=== PATIENT | male | born 1975 | race American Indian/Alaskan Native ===

== ENCOUNTER 2017-09-27 13:43 | Emergency (ER) | payer OTHER ==
[2017-09-27] MEDS ORDERED: HYDROmorphone 1 MG/ML Syringe IM ONE (14:41)
--- NOTE | 2017-09-27 14:51 | EDM.PDOC ---
ED HPI GENERAL MEDICAL PROBLEM - General Chief Complaint: Upper Extremity Injury/Pain Stated Complaint: SHOULDER PAIN Time Seen by Provider: 09/27/17 14:41 Source of Information: Reports: Patient History Limitations: Reports: No Limitations - History of Present Illness INITIAL COMMENTS - FREE TEXT/NARRATIVE: 42-year-old male presents for evaluation and treatment of pain to the left shoulder. Patient reports on Thursday he was lifting a propane tank. He was lifting this awkwardly. Since then he has been experiencing severe left arm pain. He states that it involves his neck, back and arm. Reports the pain is significantly worse with movement. He describes as a burning sensation. Identifies pain to the right anterior and superior shoulder. States he is taking some Aleve but continues to have discomfort. Denies any chest pain, shortness of breath, nausea, vomiting or diaphoresis. Patient would also like to be evaluated for a burn to the right hand fourth finger. 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 Patient also reports that he is a diabetic. He has a blister on the right foot. He states this is been present for several months after hunting. He reports he was not wearing adequate shoes during hunting. He now has discomfort to the right foot with swelling. Location: Reports: Upper Extremity, Left Left Shoulder Pain Score (Numeric/FACES): 10 - Related Data Allergies Allergy/AdvReac Type Severity Reaction Status Date / Time No Known Allergies Allergy Verified 09/27/17 14:06 Home Meds: Home Meds Acetaminophen/oxyCODONE [Percocet 325-5 MG] 1 tab PO Q6H PRN #20 tablet [Rx] Aspirin [Children's Aspirin] 81 mg PO 09/27/17 [History] Doxycycline [Vibramycin] 100 mg PO Q12HR #60 cap 09/27/17 [Rx] Insulin. 09/27/17 [History] Omeprazole 09/27/17 [History] Past Medical History Cardiovascular History: Reports: Hypertension Endocrine/Metabolic History: Reports: Diabetes, Type I Social & Family History - Tobacco Use Smoking Status *Q: Unknown Ever Smoked Review of Systems - Review of Systems Review Of Systems: See Below Constitutional: Denies: Chills, Diaphoresis, Fever Respiratory: Denies: Shortness of Breath Cardiovascular: Denies: Chest Pain GI/Abdominal: Denies: Nausea, Vomiting Musculoskeletal: Reports: Neck Pain, Shoulder Pain (left), Back Pain, Foot Pain (right, reports diabetic foot ulcer) Skin: Reports: Burn(s) (right hand forth finger) ED EXAM, GENERAL - Physical Exam Exam: See Below Exam Limited By: No Limitations General Appearance: Alert, WD/WN, No Apparent Distress Eye Exam: Bilateral Eye: Normal Inspection Ears: Normal External Exam Nose: Normal Inspection Throat/Mouth: Normal Inspection, Normal Lips, Normal Voice, No Airway Compromise Neck: Normal Inspection, Supple, Non-Tender, Full Range of Motion Respiratory/Chest: No Respiratory Distress, Lungs Clear, Normal Breath Sounds Cardiovascular: Normal Peripheral Pulses, Regular Rate, Rhythm, No Murmur Back Exam: Normal Inspection Extremities: Normal Inspection, Other (ROM testing deferred due to pain to the left shoulder, reports significant pain with light palpation to the left anterior and superior shoulder) Neurological: Alert, Oriented Psychiatric: Normal Affect, Normal Mood Skin Exam: Warm, Dry, Other (approximately 1cm in diameter blister with minor surrounding erythema to the right hand distal forth finger; right foot sole and arch erythema and swelling, no nectoric tissue, approximatle 10cm in diameter area) Course - Vital Signs Last Recorded V/S: Last Vital Signs Temp 36.9 C 09/27/17 14:01 Pulse 88 09/27/17 14:01 Resp 18 09/27/17 14:01 BP 158/85 H 09/27/17 14:01 Pulse Ox 98 09/27/17 14:01 - Orders/Labs/Meds Meds: Medications Discontinued Medications Generic Name Dose Route Start Last Admin Trade Name Tessa PRN Reason Stop Dose Admin Hydromorphone HCl 1 mg 09/27/17 14:41 09/27/17 15:13 Dilaudid IM 09/27/17 14:42 1 mg ONETIME ONE Administration - Radiology Interpretation Free Text/Narrative:: xray of the left shoulder shows no acute fractures or dislocations. - Re-Assessments/Exams Free Text/Narrative Re-Assessment/Exam: 09/27/17 16:46 I clean the wound with chlorhexidine. I then opened the blister with an 18- gauge needle on expressed about 2-3 mils of serous fluid. Bacitracin and a burn dressing was applied to the burn. I reviewed the x-ray results with the patient. It is possible they tore his rotator cuff, difficult to assess given that he has too much pain with any range of motion. I'll put him in a sling and have him follow-up with orthopedics. For the infection to the foot I will start him on some doxycycline and have him follow up with podiatry this week. Discharge instructions as documented. Departure - Departure Time of Disposition: 16:48 Disposition: Home, Self-Care 01 Condition: Fair Clinical Impression: Burn, Shoulder injury Diabetic foot ulcer Qualifiers: Diabetic foot ulcer location: midfoot Diabetes mellitus type: type 2 Laterality : left Non-pressure ulcer stage: limited to breakdown of skin Qualified Code(s) : E11.621 - Type 2 diabetes mellitus with foot ulcer - Discharge Information Prescriptions: Doxycycline [Vibramycin] 100 mg PO Q12HR #60 cap Acetaminophen/oxyCODONE [Percocet 325-5 MG] 1 tab PO Q6H PRN #20 tablet PRN Reason: Pain Instructions: Diabetes and Foot Care, Burn Care, [id number], Shoulder Pain, [id number] Referrals: PCP,Not In Area [Primary Care Provider] - Tommy Alston II, DPM [Physician] - Hernan Link MD [Physician] - Forms: ED Department Discharge Additional Instructions: you were given medication in the ER that can affect your ability to drive and operate machinery. Do not drive or operate machinnery within 12 hours of taking narcotic pain medication. wear the shoulder sling at all times. Remove the arm from the sling 3 or 4 times a day and perform pendulum arm circles prevent frozen shoulder. Percocet 1-2 tabs every 4-6 hours as needed for severe pain. Do not drive or operate machinery within 12 hours of taking the Percocet. Percocet can be habit- forming, I recommend you take as few of these as needed control your pain. Bacitracin to the wound daily. Change the wound dressing daily. Follow-up with your family practice provider in 1-2 weeks for recheck of a burn. Doxycycline 1 tablet twice a day. Follow-up with Dr. Alston, podiatry, this week for recheck of the diabetic foot ulcer. Please call [phone] to schedule with him. Follow-up with Dr. Vazquez for evaluation of the shoulder. Please call to schedule with him. Please return to the ER for symptoms change or worsen.
--- NOTE | 2017-09-29 08:02 | CR ---
Left shoulder: Three views of the left shoulder were obtained. Comparison: No previous study. Glenohumeral joint and acromioclavicular joint appear within normal limits. No acute fracture or other bony abnormality is seen. Impression: 1. No abnormality is appreciated on three-view left shoulder study. Diagnostic code #1
== END 2017-09-27 17:20 | disposition home or self-care (01) ==
LOC: JD.ED 13:48
DX: T23.221A Burn of second degree of single right finger (nail) except thumb, initial encounter (principal); S49.92XA Unspecified injury of left shoulder and upper arm, initial encounter; E11.621 Type 2 diabetes mellitus with foot ulcer; I10 Essential (primary) hypertension; Z79.82 Long term (current) use of aspirin; Z79.4 Long term (current) use of insulin; X50.1XXA Overexertion from prolonged static or awkward postures, initial encounter
CPT/HCPCS: 10140; 73030; 96372; 99283; J1170; 10060; 10160; 16000; 99284-25

== ENCOUNTER 2017-10-01 15:36 | Inpatient (IN) | payer OTHER ==
[2017-10-01] MEDS ORDERED: Sodium Chloride 0.9% 10 ML Syringe FLUSH PRN (16:40)
[2017-10-01] MEDS ORDERED: Sodium Chloride 0.9% 1,000 ML IV SCH (16:45)
--- NOTE | 2017-10-01 16:54 | EDM.PDOC ---
ED HPI GENERAL MEDICAL PROBLEM - General Chief Complaint: Skin Complaint Stated Complaint: INFECTED SORE ON FOOT Time Seen by Provider: 10/01/17 16:22 Source of Information: Reports: Patient History Limitations: Reports: No Limitations - History of Present Illness INITIAL COMMENTS - FREE TEXT/NARRATIVE: Patient is a 42-year-old male presents ED complaining of diabetic ulcer/ cellulitis to the right foot. He was initially evaluated 09/27/2017 in the ED. He was discharged home on doxycycline to which he's been taking regularly. He was evaluated by PCP today with findings concerning for worsening symptoms. Patient complains of increased redness, pain, and drainage from wound site. Blood sugars when checked have been in the mid 200s. Currently denies any fever , nausea/vomiting, pain to the posterior calf, shows breath, chest pain, or any additional complaint. States he has been thirsty recently. 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: Other (see below) Other Treatments LANDSCAPE ARCHITECT AND PLANNER: antiobtics Right Feet Pain Score (Numeric/FACES): 8 Left Shoulder Pain Score (Numeric/FACES): 8 - Related Data Allergies Allergy/AdvReac Type Severity Reaction Status Date / Time No Known Allergies Allergy Verified 10/01/17 16:06 Home Meds: Home Meds Acetaminophen/oxyCODONE [Percocet 325-5 MG] 1 tab PO Q6H PRN #20 tablet [Rx] Aspirin [Children's Aspirin] 81 mg PO DAILY 09/27/17 [History] Doxycycline [Vibramycin] 100 mg PO Q12HR #60 cap 09/27/17 [Rx] Omeprazole 20 mg PO DAILY 09/27/17 [History] Insulin Aspart [NovoLOG] See Protocol SQ QID 10/01/17 [History] Insulin Detemir [Levemir Flextouch] 20 unit SQ BEDTIME 10/01/17 [History] Past Medical History Cardiovascular History: Reports: Hypertension Endocrine/Metabolic History: Reports: Diabetes, Type I Social & Family History - Tobacco Use Smoking Status *Q: Light Tobacco Smoker Years of Tobacco use: 10 Packs/Tins Daily: 0.1 - Caffeine Use Caffeine Use: Reports: Coffee Other Caffeine Use: once in a while - Recreational Drug Use Recreational Drug Use: No ED ROS GENERAL - Review of Systems Review Of Systems: See Below Constitutional: Denies: Fever, Chills, Decreased Appetite Respiratory: Reports: No Symptoms Cardiovascular: Reports: No Symptoms GI/Abdominal: Reports: No Symptoms Musculoskeletal: Reports: Foot Pain (Right foot location a diabetic ulcer with erythema and clear drainage from site. Redness extending up the distal third of the lower leg encompassing the foot and also plantar aspect of the foot.) Neurological: Reports: No Symptoms ED EXAM, SKIN/RASH Exam: See Below Exam Limited By: No Limitations General Appearance: Alert, WD/WN, No Apparent Distress Ears: Hearing Grossly Normal Nose: Normal Inspection Throat/Mouth: Normal Voice, No Airway Compromise Neck: Normal Inspection, Supple Respiratory/Chest: No Respiratory Distress, Lungs Clear, Normal Breath Sounds, No Accessory Muscle Use Cardiovascular: Normal Peripheral Pulses, Regular Rate, Rhythm Peripheral Pulses: 3+: Posterior Tibial (R) Extremities: Other (On examination the right foot there is a large approximately 6 x 7 cm diabetic ulcer with erythema and swelling noted to the foot and medial aspect of the distal third lower leg.) Neurological: Alert, Oriented, CN II-XII Intact, Normal Cognition Psychiatric: Normal Affect, Normal Mood Course - Vital Signs Last Recorded V/S: Last Vital Signs Temp 100.5 F 10/01/17 22:44 Pulse 100 10/01/17 16:06 Resp 31 H 10/01/17 19:50 BP 132/86 10/01/17 19:50 Pulse Ox 95 10/01/17 19:50 - Orders/Labs/Meds Orders: Active Orders 24 hr Category Date Time Status Peripheral IV Care [RC] . DIRECTED Care 10/01/17 16:40 Active Foot Comp Min 3V Rt [CR] Stat Exams 10/01/17 16:42 Taken CULTURE BLOOD [BC] Stat Lab 10/01/17 18:30 Received CULTURE BLOOD [BC] Stat Lab 10/01/17 18:45 Received CULTURE WOUND [RM] Stat Lab 10/01/17 18:18 Received Sodium Chloride 0.9% [Normal Saline] 1,000 ml Med 10/01/17 16:45 Active IV ASDIRECTED Sodium Chloride 0.9% [Saline Flush] Med 10/01/17 16:40 Active 10 ml FLUSH ASDIRECTED PRN Blood Culture x2 Reflex Set [OM.PC] Stat Oth 10/01/17 18:03 Ordered Peripheral IV Insertion Adult [OM.PC] Stat Oth 10/01/17 16:40 Ordered Medication Orders Acetaminophen (Tylenol) 650 mg PO Q6H PRN PRN Reason: Pain Last Admin: 10/01/17 22:44 Dose: 650 mg Hydromorphone HCl (Dilaudid) 1 mg IVPUSH Q6H PRN PRN Reason: Pain Sodium Chloride (Normal Saline) 1,000 mls @ 999 mls/hr IV ASDIRECTED YUAN Last Admin: 10/01/17 17:18 Dose: 999 mls/hr Ketorolac Tromethamine (Toradol) 30 mg IVPUSH Q8H [facility] Stop: 10/04/17 07:01 Sodium Chloride (Saline Flush) 10 ml FLUSH ASDIRECTED PRN PRN Reason: Keep Vein Open Last Admin: 10/01/17 17:15 Dose: 10 ml Labs: Laboratory Tests 10/01/17 10/01/17 10/01/17 Range/Units 16:40 17:09 17:09 WBC 28.93 H (4.23-9.07) K/mm3 RBC 4.46 L (4.63-6.08) M/mm3 Hgb 13.0 L (13.7-17.5) gm/L Hct 39.2 L (40.1-51.0) % MCV 87.9 (79.0-92.2) fl MCH 29.1 (25.7-32.2) pg MCHC 33.2 (32.2-35.5) g/dl RDW Std Deviation 43.3 (35.1-43.9) fL Plt Count 366 H (163-337) K/mm3 MPV 10.4 (9.4-12.3) fl Neut % (Auto) 84.5 H (34.0-67.9) % Lymph % (Auto) 5.3 L (21.8-53.1) % [place] % (Auto) 8.4 (5.3-12.2) % Eos % (Auto) 0.2 L (0.8-7.0) Baso % (Auto) 0.1 (0.1-1.2) % Neut # (Auto) 24.44 H (1.78-5.38) K/mm3 Lymph # (Auto) 1.53 (1.32-3.57) K/mm3 [place] # (Auto) 2.43 H (0.30-0.82) K/mm3 Eos # (Auto) 0.05 (0.04-0.54) K/mm3 Baso # (Auto) 0.04 (0.01-0.08) K/mm3 Manual Slide Review Abnormal smear Sodium 128 L (136-145) mEq/L Potassium 3.8 (3.5-5.1) mEq/L Chloride 94 L (98-107) mEq/L Carbon Dioxide 25 (21-32) mEq/L Anion Gap 12.8 (5-15) BUN 15 (7-18) mg/dL Creatinine 1.2 (0.7-1.3) mg/dL Est Cr Clr Drug Dosing 73.44 mL/min Estimated GFR (MDRD) > 60 (>60) mL/min BUN/Creatinine Ratio 12.5 L (14-18) Glucose 157 H (74-106) mg/dL Hemoglobin A1c 10.50 H (4.50-6.20) % Lactic Acid (0.4-2.0) mmol/L Calcium 9.3 (8.5-10.1) mg/dL Total Bilirubin 1.3 H (0.2-1.0) mg/dL AST 15 (15-37) U/L ALT 23 (16-63) U/L Alkaline Phosphatase 198 H (46-116) U/L C-Reactive Protein 34.0 H* (<1.0) mg/dL Total Protein 8.5 H (6.4-8.2) g/dl Albumin 2.2 L (3.4-5.0) g/dl Globulin 6.3 gm/dL Albumin/Globulin Ratio 0.4 L (1-2) 10/01/17 Range/Units 17:40 WBC (4.23-9.07) K/mm3 RBC (4.63-6.08) M/mm3 Hgb (13.7-17.5) gm/L Hct (40.1-51.0) % MCV (79.0-92.2) fl MCH (25.7-32.2) pg MCHC (32.2-35.5) g/dl RDW Std Deviation (35.1-43.9) fL Plt Count (163-337) K/mm3 MPV (9.4-12.3) fl Neut % (Auto) (34.0-67.9) % Lymph % (Auto) (21.8-53.1) % [place] % (Auto) (5.3-12.2) % Eos % (Auto) (0.8-7.0) Baso % (Auto) (0.1-1.2) % Neut # (Auto) (1.78-5.38) K/mm3 Lymph # (Auto) (1.32-3.57) K/mm3 [place] # (Auto) (0.30-0.82) K/mm3 Eos # (Auto) (0.04-0.54) K/mm3 Baso # (Auto) (0.01-0.08) K/mm3 Manual Slide Review Sodium (136-145) mEq/L Potassium (3.5-5.1) mEq/L Chloride (98-107) mEq/L Carbon Dioxide (21-32) mEq/L Anion Gap (5-15) BUN (7-18) mg/dL Creatinine (0.7-1.3) mg/dL Est Cr Clr Drug Dosing mL/min Estimated GFR (MDRD) (>60) mL/min BUN/Creatinine Ratio (14-18) Glucose (74-106) mg/dL Hemoglobin A1c (4.50-6.20) % Lactic Acid 1.5 (0.4-2.0) mmol/L Calcium (8.5-10.1) mg/dL Total Bilirubin (0.2-1.0) mg/dL AST (15-37) U/L ALT (16-63) U/L Alkaline Phosphatase (46-116) U/L C-Reactive Protein (<1.0) mg/dL Total Protein (6.4-8.2) g/dl Albumin (3.4-5.0) g/dl Globulin gm/dL Albumin/Globulin Ratio (1-2) Meds: Medications Generic Name Dose Route Start Last Admin Trade Name Freq PRN Reason Stop Dose Admin Acetaminophen 650 mg 10/01/17 22:20 10/01/17 22:44 Tylenol PO 650 mg Q6H PRN Administration Pain Hydromorphone HCl 1 mg 10/01/17 22:22 Dilaudid IVPUSH Q6H PRN Pain Sodium Chloride 1,000 mls @ 999 mls/hr 10/01/17 16:45 10/01/17 17:18 Normal Saline IV 999 mls/hr ASDIRECTED YUAN Administration Ketorolac Tromethamine 30 mg 10/02/17 07:00 Toradol IVPUSH 10/04/17 07:01 Q8H YUAN Sodium Chloride 10 ml 10/01/17 16:40 10/01/17 17:15 Saline Flush FLUSH 10 ml ASDIRECTED PRN Administration Keep Vein Open Discontinued Medications Generic Name Dose Route Start Last Admin Trade Name Tessa PRN Reason Stop Dose Admin Clindamycin Phosphate 900 mg/ 106 mls @ 100 mls/hr 10/01/17 18:03 10/01/17 18 :45 Sodium Chloride IV 10/01/17 19:06 100 mls/hr ONETIME ONE Administration Vancomycin HCl 1 gm/ Sodium 250 mls @ 250 mls/hr 10/01/17 18:03 10/01/17 18: 46 Chloride IV 10/01/17 19:02 250 mls/hr ONETIME ONE Administration Sodium Chloride 1,932 mls @ 999 mls/hr 10/01/17 18:31 10/01/17 19:49 Normal Saline IV 10/01/17 20:27 999 mls/hr ONETIME ONE Infusion Ketorolac Tromethamine 30 mg 10/01/17 22:24 10/01/17 22:46 Toradol IVPUSH 30 mg Q8H PRN Administration Pain - Re-Assessments/Exams Free Text/Narrative Re-Assessment/Exam: IV established with normal saline. Initial labs and studies include: CBC, chem 14, CRP, hemoglobin A1c, and x-ray of the right foot. Will evaluate for osteomyelitis. Presumably patient has cellulitis that has failed outpatient treatment with doxycycline. Either way he will require IV antibiotics, possible hospital admission, and referral to orthopedic surgeon or podiatry for debridement. Denies hx of MRSA. Labs reviewed:Labs reviewed: White blood cell count 28.93, hemoglobin 13.0, platelet count 366, neutrophil percentage is 84.5, neutrophil number is 24.44, sodium 128, potassium 3.8, CO2 25, AG 12.8, creatinine 1.2, glucose 157, hemoglobin A1c 10.50, CRP 34. Patient is afrebrile. Due to lab finding, tachycardia, and elevated white blood count will go ahead with sepsis protocol: 30 mL/kg of normal saline bolus. Started patient on 1 g vancomycin and clindamycin and 900 mg IV. X-ray of the foot did not reveal obvious osteomyelitis. Reassessment, patient's blood pressure 130/92 heart rate 93 SPO2 94 patient remains afebrile. 10/01/17 20:[address] Hall. She has accepted the patient. Admission orders have been placed. Departure - Departure Time of Disposition: 20:40 Disposition: Admitted As Inpatient 66 Condition: Fair Clinical Impression: Cellulitis Qualifiers: Site of cellulitis: extremity Site of cellulitis of extremity: lower extremity Laterality: right Qualified Code(s): L03.115 - Cellulitis of right lower limb Diabetic foot ulcer Qualifiers: Diabetic foot ulcer location: midfoot Diabetes mellitus type: type 2 Laterality : left Non-pressure ulcer stage: limited to breakdown of skin Qualified Code(s) : E11.621 - Type 2 diabetes mellitus with foot ulcer - Discharge Information - My Orders Last 24 Hours: My Active Orders 10/01/17 16:40 Peripheral IV Care [RC] . DIRECTED Sodium Chloride 0.9% [Saline Flush] 10 ml FLUSH ASDIRECTED PRN Peripheral IV Insertion Adult [OM.PC] Stat 10/01/17 16:42 Foot Comp Min 3V Rt [CR] Stat 10/01/17 16:45 Sodium Chloride 0.9% [Normal Saline] 1,000 ml IV ASDIRECTED 10/01/17 18:03 Blood Culture x2 Reflex Set [OM.PC] Stat 10/01/17 18:18 CULTURE WOUND [RM] Stat 10/01/17 18:30 CULTURE BLOOD [BC] Stat 10/01/17 18:45 CULTURE BLOOD [BC] Stat - Assessment/Plan Last 24 Hours: My Active Orders 10/01/17 16:40 Peripheral IV Care [RC] . DIRECTED Sodium Chloride 0.9% [Saline Flush] 10 ml FLUSH ASDIRECTED PRN Peripheral IV Insertion Adult [OM.PC] Stat 10/01/17 16:42 Foot Comp Min 3V Rt [CR] Stat 10/01/17 16:45 Sodium Chloride 0.9% [Normal Saline] 1,000 ml IV ASDIRECTED 10/01/17 18:03 Blood Culture x2 Reflex Set [OM.PC] Stat 10/01/17 18:18 CULTURE WOUND [RM] Stat 10/01/17 18:30 CULTURE BLOOD [BC] Stat 10/01/17 18:45 CULTURE BLOOD [BC] Stat
[2017-10-01] MEDS ORDERED: Clindamycin Phosphate 900 MG in Sodium Chloride 0.9% 100 ML IV ONE (18:03)
[2017-10-01] MEDS ORDERED: SODIUM CHLORIDE 0.9% IV ONE (18:31)
[2017-10-01] MEDS ORDERED: Acetaminophen 325 MG Tab PO PRN (22:20)
[2017-10-01] MEDS ORDERED: HYDROmorphone 1 MG/ML Syringe IVPUSH PRN (22:22)
[2017-10-01] MEDS ORDERED: Ketorolac 30 MG/ML SDV IVPUSH PRN (22:24)
[2017-10-02] MEDS ORDERED: hydrALAZINE 20 MG/ML SDV IVPUSH PRN (01:06)
[2017-10-02] MEDS ORDERED: Vancomycin 1500 MG in Sodium Chloride 0.9% 500 ML IV SCH ×3 (02:00)
[2017-10-02] MEDS: Sodium Chloride 0.9% 1,000 ML IV SCH ×2 (02:48→10:48)
[2017-10-02] MEDS: Clindamycin Phosphate 900 MG in Sodium Chloride 0.9% 100 ML IV SCH ×4 (05:07→22:08)
[2017-10-02] MEDS: Ketorolac 30 MG/ML SDV IVPUSH SCH ×3 (06:11→22:07)
[2017-10-02] MEDS: Insulin Aspart 100 Units/ML 3 ML Pen SUBCUT SCH ×4 (06:55→22:14)
[2017-10-02] MEDS ORDERED: Insulin Aspart 100 Units/ML 3 ML Pen SUBCUT SCH (07:00)
--- NOTE | 2017-10-02 09:06 | CR ---
Right foot: Four views of the right foot were obtained. Comparison: No prior foot exam. Mild joint space narrowing is seen within the first MTP joint with mild bunion deformity. Soft tissue swelling appears to be present. No acute fracture, dislocation or other bony abnormality is seen. Impression: 1. Mild degenerative change within the first MTP joint with mild bunion deformity. 2. Soft tissue swelling. Diagnostic code #3
[2017-10-02] MEDS: Enoxaparin 40 MG/0.4 ML Syringe SUBCUT SCH (09:23)
[2017-10-02] MEDS: Acetaminophen/HYDROcodone 325-5 MG Tab PO PRN ×2 (10:09→22:07)
[2017-10-02] MEDS ORDERED: Lactated Ringers 1,000 ML IV SCH (10:30)
[2017-10-02] MEDS ORDERED: Sodium Chloride 0.9% 10 ML Syringe FLUSH PRN (13:06)
[2017-10-02] MEDS ORDERED: Gadobenate Dimeglumine 529 MG/ML 20 ML SDV IVPUSH ONE (13:06)
[2017-10-02] MEDS: Vancomycin 1500 MG in Sodium Chloride 0.9% 500 ML IV SCH ×3 (14:58)
--- NOTE | 2017-10-02 15:33 | MR ---
MRI right foot (without and with contrast) Technique: T1, fat-suppressed inversion recovery and post gadolinium T1 fat-suppressed sagittal; T2 fat-suppressed, T1 fat-suppressed, T2 and proton weighted coronal and T1 fat-suppressed post-gadolinium coronal; T1, T2 and post-gadolinium T1 fat suppressed axial. Findings: Diffuse subcutaneous edema is identified. Fluid is identified which is best seen on the post-gadolinium images as an area of non-enhancement. This is felt compatible with an abscess and is located within the sole of the foot beginning proximally at the level of the midfoot and extending medially inferior to the first metatarsal. This abscess has maximum measurement of 7.9 cm with maximum transverse measurement of 3.2 cm and a craniocaudal measurement of 1.5 cm. Slight edema is identified within the distal first metatarsal. These areas of edema show enhancement and are therefore likely due to areas of osteomyelitis within the distal first metatarsal. No other areas of bone enhancement or bone marrow edema is seen. Impression: 1. Diffuse subcutaneous edema. 2. Fluid as described above within the sole of the foot compatible with abscess. 3. Findings felt compatible with small area of osteomyelitis within the distal first metatarsal. Diagnostic code #[address] [employer] [address] Vee Hall on 10/02/17 at [id number]
--- NOTE | 2017-10-02 15:52 | PCM.HP ---
H&P History of Present Illness - General Date of Service: 10/01/17 Admit Problem/Dx: Admission Diagnosis/Problem Admission Diagnosis/Problem Cellulitis and abscess of foot Source of Information: Provider History Limitations: Reports: No Limitations - History of Present Illness Initial Comments - Free Text/Narative: 42 year old male with diabetes mellitus presents after failed outpatient therapy for diabteic foot ulcer. The patient injured his foot before the end of August. It was formally evaluated on 09/27/17. At that time, he was started on Doxycycline and reportedly completed the antibiotic. He reported that he saw his PCP, and was told to come to the ED in [place] with worsening infection involving his foot extending to his leg. He admits to redness, swelling, and drainage. He denies any significant pain. General surgery will be consulted for drainage of his foot as appropriate, IV antibiotics will be continued as written. Onset of Symptoms: Reports: Unknown/Unsure Symptom Onset Date: 09/27/17 Duration of Symptoms: Reports: Week(s):, Getting Worse Location: Reports: Other (right foot) Quality: Reports: Ache Severity: Moderate Improves with: Reports: Medication Worsens with: Reports: None Context: Reports: Other (blister after wrong pair of boots were worn) Associated Symptoms: Reports: No Other Symptoms Right Feet Pain Score (Numeric/FACES): 2 Left Shoulder Pain Score (Numeric/FACES): 2 - Related Data Allergies/Adverse Reactions: Allergies Allergy/AdvReac Type Severity Reaction Status Date / Time No Known Allergies Allergy Verified 10/01/17 16:06 Home Medications: Home Meds Acetaminophen/oxyCODONE [Percocet 325-5 MG] 1 tab PO Q6H PRN #20 tablet [Rx] Aspirin [Children's Aspirin] 81 mg PO DAILY 09/27/17 [History] Doxycycline [Vibramycin] 100 mg PO Q12HR #60 cap 09/27/17 [Rx] Omeprazole 20 mg PO DAILY 09/27/17 [History] Insulin Aspart [NovoLOG] See Protocol SQ QID 10/01/17 [History] Insulin Detemir [Levemir Flextouch] 20 unit SQ BEDTIME 10/01/17 [History] Past Medical History Cardiovascular History: Reports: Hypertension Gastrointestinal History: Reports: GERD Endocrine/Metabolic History: Reports: Diabetes, Type I Dermatologic History: Reports: Other (See Below) Other Dermatologic History: Diabetic ulcers - Infectious Disease History Infectious Disease History: Reports: Chicken Pox - Past Surgical History Cardiovascular Surgical History: Reports: None GI Surgical History: Reports: None Endocrine Surgical History: Reports: None Dermatological Surgical History: Reports: None Social & Family History - Family History Family Medical History: Noncontributory - Tobacco Use Smoking Status *Q: Light Tobacco Smoker Years of Tobacco use: 10 Packs/Tins Daily: 0.1 Used Tobacco, but Quit: No Second Hand Smoke Exposure: No - Caffeine Use Caffeine Use: Reports: Coffee Other Caffeine Use: once in a while - Alcohol Use Date of Last Drink: 09/28/17 Time of Last Drink: 20:00 - Recreational Drug Use Recreational Drug Use: No H&P Review of Systems - Review of Systems: Review Of Systems: See Below General: Reports: No Symptoms HEENT: Reports: No Symptoms Pulmonary: Reports: No Symptoms Cardiovascular: Reports: No Symptoms Gastrointestinal: Reports: No Symptoms Genitourinary: Reports: No Symptoms Musculoskeletal: Reports: Foot Pain (right) Skin: Reports: Erythema, Wound, Other (drainage with foul smell) Psychiatric: Reports: No Symptoms Neurological: Reports: No Symptoms Hematologic/Lymphatic: Reports: No Symptoms Immunologic: Reports: No Symptoms Exam - Exam Exam: See Below - Vital Signs Vital Signs: Last Vital Signs Temp 36.3 C 10/02/17 15:01 Pulse 78 10/02/17 15:01 Resp 32 H 10/02/17 15:01 BP 171/94 H 10/02/17 15:01 Pulse Ox 96 10/02/17 15:01 Weight: 100.607 kg - Exam Quality Assessment: DVT Prophylaxis General: Alert, Oriented, Cooperative HEENT: Nares Patent, Normal Nasal Septum, Pupils Equal, Pupils Reactive, PERRLA Neck: Trachea Midline Lungs: Normal Respiratory Effort Cardiovascular: Regular Rate, Regular Rhythm GI/Abdominal Exam: Normal Bowel Sounds, Soft, Non-Tender, No Organomegaly, No Distention (Male) Exam: Deferred Rectal (Males) Exam: Deferred Back Exam: Normal Inspection Extremities: Pedal Edema, Slow Capillary Refill, Increased Warmth, Redness, Other (foul smelling dainage) Skin: Warm, Wound Neurological: Cranial Nerves Intact, Normal Speech Neuro Extensive - Mental Status: Alert, Oriented x3, Normal Mood/Affect, Normal Cognition, Memory Intact Neuro Extensive - Motor, Sensory, Reflexes: CN II-XII Intact Psychiatric: Alert, Normal Affect, Normal Mood - Patient Data Lab Results Last 24 hrs: Laboratory Results - last 24 hr 10/02/17 10/02/17 10/02/17 Range/Units 02:09 05:56 06:13 WBC (4.23-9.07) K/mm3 RBC (4.63-6.08) M/mm3 Hgb (13.7-17.5) gm/L Hct (40.1-51.0) % MCV (79.0-92.2) fl MCH (25.7-32.2) pg MCHC (32.2-35.5) g/dl RDW Std Deviation (35.1-43.9) fL Plt Count (163-337) K/mm3 MPV (9.4-12.3) fl Neut % (Auto) (34.0-67.9) % Lymph % (Auto) (21.8-53.1) % [place] % (Auto) (5.3-12.2) % Eos % (Auto) (0.8-7.0) Baso % (Auto) (0.1-1.2) % Neut # (Auto) (1.78-5.38) K/mm3 Lymph # (Auto) (1.32-3.57) K/mm3 [place] # (Auto) (0.30-0.82) K/mm3 Eos # (Auto) (0.04-0.54) K/mm3 Baso # (Auto) (0.01-0.08) K/mm3 Manual Slide Review Sodium 135 L (136-145) mEq/L Potassium 3.8 (3.5-5.1) mEq/L Chloride 102 (98-107) mEq/L Carbon Dioxide 21 (21-32) mEq/L Anion Gap 15.8 H (5-15) BUN 14 (7-18) mg/dL Creatinine 1.0 (0.7-1.3) mg/dL Est Cr Clr Drug Dosing 88.13 mL/min Estimated GFR (MDRD) > 60 (>60) mL/min BUN/Creatinine Ratio 14.0 (14-18) Glucose 224 H (74-106) mg/dL POC Glucose (70-105) mg/dL Hemoglobin A1c (4.50-6.20) % Lactic Acid (0.4-2.0) mmol/L Calcium 8.3 L (8.5-10.1) mg/dL Magnesium 1.8 (1.8-2.4) mg/dl C-Reactive Protein 30.5 H* (<1.0) mg/dL Vancomycin Trough 7.4 L (10.0-20.0) 10/02/17 10/02/17 10/02/17 Range/Units 06:13 06:13 06:13 WBC 27.17 H (4.23-9.07) K/mm3 RBC 3.93 L (4.63-6.08) M/mm3 Hgb 11.5 L (13.7-17.5) gm/L Hct 35.1 L (40.1-51.0) % MCV 89.3 (79.0-92.2) fl MCH 29.3 (25.7-32.2) pg MCHC 32.8 (32.2-35.5) g/dl RDW Std Deviation 44.0 H (35.1-43.9) fL Plt Count 325 (163-337) K/mm3 MPV 10.6 (9.4-12.3) fl Neut % (Auto) 79.3 H (34.0-67.9) % Lymph % (Auto) 8.6 L (21.8-53.1) % [place] % (Auto) 10.2 (5.3-12.2) % Eos % (Auto) 0.5 L (0.8-7.0) Baso % (Auto) 0.1 (0.1-1.2) % Neut # (Auto) 21.56 H (1.78-5.38) K/mm3 Lymph # (Auto) 2.34 (1.32-3.57) K/mm3 [place] # (Auto) 2.76 H (0.30-0.82) K/mm3 Eos # (Auto) 0.13 (0.04-0.54) K/mm3 Baso # (Auto) 0.04 (0.01-0.08) K/mm3 Manual Slide Review Abnormal smear Sodium (136-145) mEq/L Potassium (3.5-5.1) mEq/L Chloride (98-107) mEq/L Carbon Dioxide (21-32) mEq/L Anion Gap (5-15) BUN (7-18) mg/dL Creatinine (0.7-1.3) mg/dL Est Cr Clr Drug Dosing mL/min Estimated GFR (MDRD) (>60) mL/min BUN/Creatinine Ratio (14-18) Glucose (74-106) mg/dL POC Glucose (70-105) mg/dL Hemoglobin A1c 10.60 H (4.50-6.20) % Lactic Acid 1.1 (0.4-2.0) mmol/L Calcium (8.5-10.1) mg/dL Magnesium (1.8-2.4) mg/dl C-Reactive Protein (<1.0) mg/dL Vancomycin Trough (10.0-20.0) 10/02/17 10/02/17 Range/Units 06:41 11:59 WBC (4.23-9.07) K/mm3 RBC (4.63-6.08) M/mm3 Hgb (13.7-17.5) gm/L Hct (40.1-51.0) % MCV (79.0-92.2) fl MCH (25.7-32.2) pg MCHC (32.2-35.5) g/dl RDW Std Deviation (35.1-43.9) fL Plt Count (163-337) K/mm3 MPV (9.4-12.3) fl Neut % (Auto) (34.0-67.9) % Lymph % (Auto) (21.8-53.1) % [place] % (Auto) (5.3-12.2) % Eos % (Auto) (0.8-7.0) Baso % (Auto) (0.1-1.2) % Neut # (Auto) (1.78-5.38) K/mm3 Lymph # (Auto) (1.32-3.57) K/mm3 [place] # (Auto) (0.30-0.82) K/mm3 Eos # (Auto) (0.04-0.54) K/mm3 Baso # (Auto) (0.01-0.08) K/mm3 Manual Slide Review Sodium (136-145) mEq/L Potassium (3.5-5.1) mEq/L Chloride (98-107) mEq/L Carbon Dioxide (21-32) mEq/L Anion Gap (5-15) BUN (7-18) mg/dL Creatinine (0.7-1.3) mg/dL Est Cr Clr Drug Dosing mL/min Estimated GFR (MDRD) (>60) mL/min BUN/Creatinine Ratio (14-18) Glucose (74-106) mg/dL POC Glucose 238 H 353 H (70-105) mg/dL Hemoglobin A1c (4.50-6.20) % Lactic Acid (0.4-2.0) mmol/L Calcium (8.5-10.1) mg/dL Magnesium (1.8-2.4) mg/dl C-Reactive Protein (<1.0) mg/dL Vancomycin Trough (10.0-20.0) Result Diagrams: 10/02/17 06:13 10/02/17 06:13 *Q Meaningful Use (ADM) - VTE *Q VTE Criteria *Q: - Stroke *Q Stroke Criteria *Q: - AMI *Q AMI Criteria *Q: - Problem List (1) Abscess SNOMED Code(s): 567662786 ICD Code: L02.91 - CUTANEOUS ABSCESS, UNSPECIFIED Status: Acute Current Visit: Yes (2) Diabetes mellitus SNOMED Code(s): 31502519 ICD Code: E11.9 - TYPE 2 DIABETES MELLITUS WITHOUT COMPLICATIONS Status: Acute Current Visit: Yes (3) Obesity (BMI 30.0-34.9) SNOMED Code(s): 350972570 ICD Code: E66.9 - OBESITY, UNSPECIFIED Status: Acute Current Visit: Yes (4) Hypertension SNOMED Code(s): 24083670 ICD Code: I10 - ESSENTIAL (PRIMARY) HYPERTENSION Status: Acute Current Visit: Yes (5) Hyperlipidemia SNOMED Code(s): 50773080 ICD Code: E78.5 - HYPERLIPIDEMIA, UNSPECIFIED Status: Acute Current Visit : Yes (6) Diabetic foot ulcer SNOMED Code(s): 144217217 ICD Code: E11.621 - TYPE 2 DIABETES MELLITUS WITH FOOT ULCER; L97.509 - NON- PRESSURE CHRONIC ULCER OTH PRT UNSP FOOT W UNSP SEVERITY Status: Acute Current Visit: Yes Qualifiers: Diabetic foot ulcer location: midfoot Diabetes mellitus type: type 2 Laterality: left Non-pressure ulcer stage: limited to breakdown of skin Qualified Code(s): E11.621 - Type 2 diabetes mellitus with foot ulcer; L97.421 - Non-pressure chronic ulcer of left heel and midfoot limited to breakdown of skin; L97.421 - Non-pressure chronic ulcer of left heel and midfoot limited to breakdown of skin; L97.421 - Non-pressure chronic ulcer of left heel and midfoot limited to breakdown of skin; L97.421 - Non-pressure chronic ulcer of left heel and midfoot limited to breakdown of skin Problem List Initiated/Reviewed/Updated: Yes Orders Last 24hrs: Active Orders 24 hr Category Date Time Status Admission Status [Patient Status] [ADT] Routine ADT 10/01/17 20:42 Active Accu Check [Blood Glucose Check, Bedside] [RC] Care 10/02/17 07:00 Active QIDACANDBED Cardiac Monitoring [RC] . DIRECTED Care 10/01/17 20:42 Active Notify Provider Consults [RC] ASDIRECTED Care 10/02/17 10:14 Active Consult to Case Management [CONS] Routine Cons 10/02/17 01:02 Active Consult to Rail Manager [Consult to Diabetic Nurse Cons 10/02/17 10:16 Active Specialist] [CONS] Routine Consult to Dietary [Consult to Dial Brusher] [CONS] Cons 10/02/17 10:16 Active Routine Consult to Physical Therapy [PT Evaluation and Cons 10/02/17 07:00 Active Treatment] [CONS] Routine Consult to Physical Therapy [PT Evaluation and Cons 10/02/17 07:00 Active Treatment] [CONS] Routine Consult to Physician [CONS] Routine Cons 10/02/17 10:14 Active [place] [employer] Diet [DIET] Diet 10/02/17 Breakfast Active CULTURE MRSA [RM] Routine Lab 10/01/17 23:00 Results VANCOMYCIN TROUGH [CHEM] Timed Lab 10/04/17 02:30 Ordered Acetaminophen [Tylenol] Med 10/01/17 22:20 Active 650 mg PO Q6H PRN Acetaminophen/HYDROcodone [Rena Lara 325-5 MG] Med 10/02/17 03:04 Active 1 tab PO Q4H PRN Aspirin Med 10/03/17 09:00 Active 81 mg PO DAILY Clindamycin Phosphate [Cleocin] 900 mg Med 10/02/17 05:00 Active Sodium Chloride 0.9% [Normal Saline] 100 ml IV Q6H Enoxaparin [Lovenox] Med 10/02/17 09:00 Active 40 mg SUBCUT DAILY HYDROmorphone [Dilaudid] Med 10/01/17 22:22 Active 1 mg IVPUSH Q6H PRN Insulin Aspart [NovoLOG] Med 10/02/17 07:00 Active See Protocol SUBCUT QIDACANDBED Insulin Detemir [Levemir] Med 10/02/17 21:00 Active 20 unit SUBCUT BEDTIME Ketorolac [Toradol] Med 10/02/17 07:00 Active 30 mg IVPUSH Q8H Pantoprazole [ProTONIX] Med 10/03/17 06:00 Active 40 mg PO ACBREAKFAST Sodium Chloride 0.9% [Normal Saline] 1,000 ml Med 10/02/17 01:00 Active IV ASDIRECTED Sodium Chloride 0.9% [Saline Flush] Med 10/02/17 13:06 Active 20 ml FLUSH ONETIME PRN Vancomycin 1 gm Med 10/02/17 15:00 Active Vancomycin 500 mg Sodium Chloride 0.9% [Normal Saline] 500 ml IV Q12H Vancomycin Pharmacy to Dose [Pharmacy to Dose - Med 10/02/17 01:45 Active Vancomycin] 1 dose .XX ASDIRECTED hydrALAZINE [Apresoline] Med 10/02/17 01:06 Active 20 mg IVPUSH Q6H PRN Resuscitation Status Routine Resus Stat 10/02/17 02:33 Ordered Medication Orders Acetaminophen (Tylenol) 650 mg PO Q6H PRN PRN Reason: Pain Last Admin: 10/01/17 22:44 Dose: 650 mg Hydrocodone Bitart/Acetaminophen (Rena Lara 325-5 Mg) 1 tab PO Q4H PRN PRN Reason: Pain Last Admin: 10/02/17 10:09 Dose: 1 tab Aspirin (Aspirin) 81 mg PO DAILY [facility] Enoxaparin Sodium (Lovenox) 40 mg SUBCUT DAILY [facility] Last Admin: 10/02/17 09:23 Dose: 40 mg Hydralazine HCl (Apresoline) 20 mg IVPUSH Q6H PRN PRN Reason: Hypertension Hydromorphone HCl (Dilaudid) 1 mg IVPUSH Q6H PRN PRN Reason: Pain Sodium Chloride (Normal Saline) 1,000 mls @ 150 mls/hr IV ASDIRECTED [facility] Last Admin: 10/02/17 10:48 Dose: 150 mls/hr Infusion: 10/02/17 09:29 Dose: 150 mls/hr Admin: 10/02/17 02:48 Dose: 150 mls/hr Clindamycin Phosphate 900 mg/ (Sodium Chloride) 106 mls @ 100 mls/hr IV Q6H [facility] Last Admin: 10/02/17 10:10 Dose: 100 mls/hr Infusion: 10/02/17 06:11 Dose: 100 mls/hr Admin: 10/02/17 05:07 Dose: 100 mls/hr Vancomycin HCl 1 gm/Vancomycin HCl 500 mg/ Sodium Chloride 500 mls @ 333 mls/ hr IV Q12H [facility] Last Admin: 10/02/17 14:58 Dose: 333 mls/hr Insulin Aspart (Novolog) 0 unit SUBCUT QIDACANDBED [facility] PRN Reason: Protocol Last Admin: 10/02/17 12:22 Dose: 10 unit Admin: 10/02/17 06:55 Dose: 4 unit Insulin Detemir (Levemir) 20 unit SUBCUT BEDTIME [facility] Ketorolac Tromethamine (Toradol) 30 mg IVPUSH Q8H [facility] Stop: 10/04/17 07:01 Last Admin: 10/02/17 14:59 Dose: 30 mg Admin: 10/02/17 06:11 Dose: 30 mg Pantoprazole Sodium (Protonix) 40 mg PO ACBREAKFAST [facility] Sodium Chloride (Saline Flush) 10 ml FLUSH ASDIRECTED PRN PRN Reason: Keep Vein Open Last Admin: 10/01/17 17:15 Dose: 10 ml Sodium Chloride (Saline Flush) 20 ml FLUSH ONETIME PRN PRN Reason: Keep Vein Open Last Admin: 10/02/17 14:26 Dose: 20 ml Vancomycin HCl (Pharmacy To Dose - Vancomycin) 1 dose .XX ASDIRECTED [facility] Assessment/Plan Comment:: Impression: Failed outpatient therapy for cellulitis; diabetic foot ulcer Query osteomyelitis Abscess formation on plantar aspect of right foot HTN Diabetes Mellitus type 2; poor control HA1C, 10.5 Chronic Obesity HLD Plan: MRI re: foot, eval for OM Novolog SS IVF Continue Clindamycin/Vancomycin General Surgery consult BC pending Home meds Diabetic teaching Dietary consult DVT/GI prophylaxis PT/OT consult MRSA screen
--- NOTE | 2017-10-02 20:27 | PCM.PN ---
- General Info Date of Service: 10/02/17 Functional Status: Reports: Pain Controlled, Tolerating Diet, Ambulating - Review of Systems General: Reports: No Symptoms HEENT: Reports: No Symptoms Pulmonary: Reports: No Symptoms Cardiovascular: Reports: No Symptoms Gastrointestinal: Reports: No Symptoms Genitourinary: Reports: No Symptoms Musculoskeletal: Reports: No Symptoms Skin: Reports: No Symptoms Neurological: Reports: No Symptoms Psychiatric: Reports: No Symptoms - Patient Data Vitals - Most Recent: Last Vital Signs Temp 36.4 C 10/02/17 16:27 Pulse 79 10/02/17 16:27 Resp 24 H 10/02/17 16:27 BP 132/77 10/02/17 18:18 Pulse Ox 95 10/02/17 16:27 Weight - Most Recent: 100.607 kg I&O - Last 24 Hours: Intake & Output 10/02/17 10/02/17 10/02/17 06:59 14:59 22:59 Intake Total 624 909 3111 Output Total 1000 Balance 450 360 960 Lab Results Last 24 Hours: Laboratory Results - last 24 hr 10/02/17 10/02/17 10/02/17 Range/Units 02:09 05:56 06:13 WBC (4.23-9.07) K/mm3 RBC (4.63-6.08) M/mm3 Hgb (13.7-17.5) gm/L Hct (40.1-51.0) % MCV (79.0-92.2) fl MCH (25.7-32.2) pg MCHC (32.2-35.5) g/dl RDW Std Deviation (35.1-43.9) fL Plt Count (163-337) K/mm3 MPV (9.4-12.3) fl Neut % (Auto) (34.0-67.9) % Lymph % (Auto) (21.8-53.1) % [place] % (Auto) (5.3-12.2) % Eos % (Auto) (0.8-7.0) Baso % (Auto) (0.1-1.2) % Neut # (Auto) (1.78-5.38) K/mm3 Lymph # (Auto) (1.32-3.57) K/mm3 [place] # (Auto) (0.30-0.82) K/mm3 Eos # (Auto) (0.04-0.54) K/mm3 Baso # (Auto) (0.01-0.08) K/mm3 Manual Slide Review Sodium 135 L (136-145) mEq/L Potassium 3.8 (3.5-5.1) mEq/L Chloride 102 (98-107) mEq/L Carbon Dioxide 21 (21-32) mEq/L Anion Gap 15.8 H (5-15) BUN 14 (7-18) mg/dL Creatinine 1.0 (0.7-1.3) mg/dL Est Cr Clr Drug Dosing 88.13 mL/min Estimated GFR (MDRD) > 60 (>60) mL/min BUN/Creatinine Ratio 14.0 (14-18) Glucose 224 H (74-106) mg/dL POC Glucose (70-105) mg/dL Hemoglobin A1c (4.50-6.20) % Lactic Acid (0.4-2.0) mmol/L Calcium 8.3 L (8.5-10.1) mg/dL Magnesium 1.8 (1.8-2.4) mg/dl C-Reactive Protein 30.5 H* (<1.0) mg/dL Vancomycin Trough 7.4 L (10.0-20.0) 10/02/17 10/02/17 10/02/17 Range/Units 06:13 06:13 06:13 WBC 27.17 H (4.23-9.07) K/mm3 RBC 3.93 L (4.63-6.08) M/mm3 Hgb 11.5 L (13.7-17.5) gm/L Hct 35.1 L (40.1-51.0) % MCV 89.3 (79.0-92.2) fl MCH 29.3 (25.7-32.2) pg MCHC 32.8 (32.2-35.5) g/dl RDW Std Deviation 44.0 H (35.1-43.9) fL Plt Count 325 (163-337) K/mm3 MPV 10.6 (9.4-12.3) fl Neut % (Auto) 79.3 H (34.0-67.9) % Lymph % (Auto) 8.6 L (21.8-53.1) % [place] % (Auto) 10.2 (5.3-12.2) % Eos % (Auto) 0.5 L (0.8-7.0) Baso % (Auto) 0.1 (0.1-1.2) % Neut # (Auto) 21.56 H (1.78-5.38) K/mm3 Lymph # (Auto) 2.34 (1.32-3.57) K/mm3 [place] # (Auto) 2.76 H (0.30-0.82) K/mm3 Eos # (Auto) 0.13 (0.04-0.54) K/mm3 Baso # (Auto) 0.04 (0.01-0.08) K/mm3 Manual Slide Review Abnormal smear Sodium (136-145) mEq/L Potassium (3.5-5.1) mEq/L Chloride (98-107) mEq/L Carbon Dioxide (21-32) mEq/L Anion Gap (5-15) BUN (7-18) mg/dL Creatinine (0.7-1.3) mg/dL Est Cr Clr Drug Dosing mL/min Estimated GFR (MDRD) (>60) mL/min BUN/Creatinine Ratio (14-18) Glucose (74-106) mg/dL POC Glucose (70-105) mg/dL Hemoglobin A1c 10.60 H (4.50-6.20) % Lactic Acid 1.1 (0.4-2.0) mmol/L Calcium (8.5-10.1) mg/dL Magnesium (1.8-2.4) mg/dl C-Reactive Protein (<1.0) mg/dL Vancomycin Trough (10.0-20.0) 10/02/17 10/02/17 10/02/17 Range/Units 06:41 11:59 16:48 WBC (4.23-9.07) K/mm3 RBC (4.63-6.08) M/mm3 Hgb (13.7-17.5) gm/L Hct (40.1-51.0) % MCV (79.0-92.2) fl MCH (25.7-32.2) pg MCHC (32.2-35.5) g/dl RDW Std Deviation (35.1-43.9) fL Plt Count (163-337) K/mm3 MPV (9.4-12.3) fl Neut % (Auto) (34.0-67.9) % Lymph % (Auto) (21.8-53.1) % [place] % (Auto) (5.3-12.2) % Eos % (Auto) (0.8-7.0) Baso % (Auto) (0.1-1.2) % Neut # (Auto) (1.78-5.38) K/mm3 Lymph # (Auto) (1.32-3.57) K/mm3 [place] # (Auto) (0.30-0.82) K/mm3 Eos # (Auto) (0.04-0.54) K/mm3 Baso # (Auto) (0.01-0.08) K/mm3 Manual Slide Review Sodium (136-145) mEq/L Potassium (3.5-5.1) mEq/L Chloride (98-107) mEq/L Carbon Dioxide (21-32) mEq/L Anion Gap (5-15) BUN (7-18) mg/dL Creatinine (0.7-1.3) mg/dL Est Cr Clr Drug Dosing mL/min Estimated GFR (MDRD) (>60) mL/min BUN/Creatinine Ratio (14-18) Glucose (74-106) mg/dL POC Glucose 238 H 353 H 189 H (70-105) mg/dL Hemoglobin A1c (4.50-6.20) % Lactic Acid (0.4-2.0) mmol/L Calcium (8.5-10.1) mg/dL Magnesium (1.8-2.4) mg/dl C-Reactive Protein (<1.0) mg/dL Vancomycin Trough (10.0-20.0) Med Orders - Current: Current Medications Acetaminophen (Tylenol) 650 mg PO Q6H PRN PRN Reason: Pain Last Admin: 10/01/17 22:44 Dose: 650 mg Hydrocodone Bitart/Acetaminophen (Artesia 325-5 Mg) 1 tab PO Q4H PRN PRN Reason: Pain Last Admin: 10/02/17 10:09 Dose: 1 tab Aspirin (Aspirin) 81 mg PO DAILY [facility] Enoxaparin Sodium (Lovenox) 40 mg SUBCUT DAILY [facility] Last Admin: 10/02/17 09:23 Dose: 40 mg Hydralazine HCl (Apresoline) 20 mg IVPUSH Q6H PRN PRN Reason: Hypertension Last Admin: 10/02/17 16:50 Dose: 20 mg Hydromorphone HCl (Dilaudid) 1 mg IVPUSH Q6H PRN PRN Reason: Pain Sodium Chloride (Normal Saline) 1,000 mls @ 150 mls/hr IV ASDIRECTED [facility] Last Admin: 10/02/17 10:48 Dose: 150 mls/hr Clindamycin Phosphate 900 mg/ (Sodium Chloride) 106 mls @ 100 mls/hr IV Q6H [facility] Last Admin: 10/02/17 16:49 Dose: 100 mls/hr Vancomycin HCl 1 gm/Vancomycin HCl 500 mg/ Sodium Chloride 500 mls @ 333 mls/ hr IV Q12H [facility] Last Admin: 10/02/17 14:58 Dose: 333 mls/hr Insulin Aspart (Novolog) 0 unit SUBCUT QIDACANDBED [facility] PRN Reason: Protocol Stop: 10/03/17 04:00 Last Admin: 10/02/17 16:49 Dose: 2 unit Insulin Aspart (Novolog) 0 unit SUBCUT QIDACANDBED [facility] PRN Reason: Protocol Insulin Detemir (Levemir) 20 unit SUBCUT BEDTIME [facility] Ketorolac Tromethamine (Toradol) 30 mg IVPUSH Q8H [facility] Stop: 10/04/17 07:01 Last Admin: 10/02/17 14:59 Dose: 30 mg Pantoprazole Sodium (Protonix) 40 mg PO ACBREAKFAST [facility] Sodium Chloride (Saline Flush) 10 ml FLUSH ASDIRECTED PRN PRN Reason: Keep Vein Open Last Admin: 10/01/17 17:15 Dose: 10 ml Sodium Chloride (Saline Flush) 20 ml FLUSH ONETIME PRN PRN Reason: Keep Vein Open Last Admin: 10/02/17 14:26 Dose: 20 ml Vancomycin HCl (Pharmacy To Dose - Vancomycin) 1 dose .XX ASDIRECTED [facility] Discontinued Medications Gadobenate Dimeglumine (Multihance) 20 ml IVPUSH ONETIME ONE Stop: 10/02/17 13:07 Last Admin: 10/02/17 14:26 Dose: 20 ml Sodium Chloride (Normal Saline) 1,000 mls @ 999 mls/hr IV ASDIRECTED [facility] Last Admin: 10/01/17 17:18 Dose: 999 mls/hr Clindamycin Phosphate 900 mg/ (Sodium Chloride) 106 mls @ 100 mls/hr IV ONETIME ONE Stop: 10/01/17 19:06 Last Admin: 10/01/17 18:45 Dose: 100 mls/hr Vancomycin HCl 1 gm/ Sodium (Chloride) 250 mls @ 250 mls/hr IV ONETIME ONE Stop: 10/01/17 19:02 Last Admin: 10/01/17 18:46 Dose: 250 mls/hr Sodium Chloride (Normal Saline) 1,932 mls @ 999 mls/hr IV ONETIME ONE Stop: 10/01/17 20:27 Last Infusion: 10/01/17 19:49 Dose: 999 mls/hr Vancomycin HCl 1 gm/Vancomycin HCl 500 mg/ Sodium Chloride 500 mls @ 333 mls/ hr IV Q12H [facility] Last Admin: 10/02/17 20:23 Dose: Not Given Vancomycin HCl 1 gm/ Sodium (Chloride) 250 mls @ 250 mls/hr IV ONETIME ONE Stop: 10/02/17 03:59 Last Admin: 10/02/17 03:02 Dose: 250 mls/hr Vancomycin HCl 1 gm/ Sodium (Chloride) 250 mls @ 250 mls/hr IV ONETIME ONE Stop: 10/02/17 04:59 Last Admin: 10/02/17 20:23 Dose: Not Given Vancomycin HCl 1 gm/ Sodium (Chloride) 250 mls @ 250 mls/hr IV ONETIME ONE Stop: 10/02/17 05:59 Last Admin: 10/02/17 06:05 Dose: 250 mls/hr Lactated Ringer's (Ringers, Lactated) 1,000 mls @ 100 mls/hr IV ASDIRECTED [facility] Insulin Aspart (Novolog) 0 unit SUBCUT BIDMEALS [facility] PRN Reason: Protocol Ketorolac Tromethamine (Toradol) 30 mg IVPUSH Q8H PRN PRN Reason: Pain Last Admin: 10/01/17 22:46 Dose: 30 mg - Exam Quality Assessment: DVT Prophylaxis General: Alert, Oriented, Cooperative, No Acute Distress HEENT: Pupils Equal, Pupils Reactive, EOMI Neck: Supple, Trachea Midline, No JVD Lungs: Normal Respiratory Effort Cardiovascular: Regular Rate, Regular Rhythm GI/Abdominal Exam: Normal Bowel Sounds, Soft, Non-Tender, No Organomegaly, No Distention (Male) Exam: Deferred Back Exam: Normal Inspection Extremities: Normal Inspection, Pedal Edema, Increased Warmth, Redness, Other ( drainage) Skin: Warm Wound/Incisions: Drainage, Erythema Neurological: No New Focal Deficit, Normal Gait, Normal Speech Psy/Mental Status: Alert, Normal Affect, Normal Mood - Problem List & Annotations (1) Abscess SNOMED Code(s): 904727366 Code(s): L02.91 - CUTANEOUS ABSCESS, UNSPECIFIED Status: Acute (2) Diabetes mellitus SNOMED Code(s): 54148871 Code(s): E11.9 - TYPE 2 DIABETES MELLITUS WITHOUT COMPLICATIONS Status: Acute (3) Obesity (BMI 30.0-34.9) SNOMED Code(s): 497082607 Code(s): E66.9 - OBESITY, UNSPECIFIED Status: Acute (4) Hypertension SNOMED Code(s): 95074679 Code(s): I10 - ESSENTIAL (PRIMARY) HYPERTENSION Status: Acute (5) Hyperlipidemia SNOMED Code(s): 55224005 Code(s): E78.5 - HYPERLIPIDEMIA, UNSPECIFIED Status: Acute (6) Diabetic foot ulcer SNOMED Code(s): 741390961 Code(s): E11.621 - TYPE 2 DIABETES MELLITUS WITH FOOT ULCER; L97.509 - NON- PRESSURE CHRONIC ULCER OTH PRT UNSP FOOT W UNSP SEVERITY Status: Acute Qualifiers: Diabetic foot ulcer location: midfoot Diabetes mellitus type: type 2 Laterality: left Non-pressure ulcer stage: with other severity Qualified Code(s): E11.621 - Type 2 diabetes mellitus with foot ulcer; L97.428 - Non- pressure chronic ulcer of left heel and midfoot with other specified severity; L97.428 - Non-pressure chronic ulcer of left heel and midfoot with other specified severity - Problem List Review Problem List Initiated/Reviewed/Updated: Yes - My Orders Last 24 Hours: My Active Orders 10/01/17 22:20 Acetaminophen [Tylenol] 650 mg PO Q6H PRN 10/01/17 22:22 HYDROmorphone [Dilaudid] 1 mg IVPUSH Q6H PRN 10/01/17 23:00 CULTURE MRSA [RM] Routine 10/02/17 01:00 Sodium Chloride 0.9% [Normal Saline] 1,000 ml IV ASDIRECTED 10/02/17 01:02 Consult to Case Management [CONS] Routine 10/02/17 01:06 hydrALAZINE [Apresoline] 20 mg IVPUSH Q6H PRN 10/02/17 01:45 Vancomycin Pharmacy to Dose [Pharmacy to Dose - Vancomycin] 1 dose .XX ASDIRECTED 10/02/17 02:33 Resuscitation Status Routine 10/02/17 03:04 Acetaminophen/HYDROcodone [Artesia 325-5 MG] 1 tab PO Q4H PRN 10/02/17 05:00 Clindamycin Phosphate [Cleocin] 900 mg Sodium Chloride 0.9% [Normal Saline] 100 ml IV Q6H 10/02/17 07:00 Accu Check [Blood Glucose Check, Bedside] [RC] QIDACANDBED Consult to Physical Therapy [PT Evaluation and Treatment] [CONS] Routine Consult to Physical Therapy [PT Evaluation and Treatment] [CONS] Routine Insulin Aspart [NovoLOG] See Protocol SUBCUT QIDACANDBED Ketorolac [Toradol] 30 mg IVPUSH Q8H 10/02/17 09:00 Enoxaparin [Lovenox] 40 mg SUBCUT DAILY 10/02/17 10:14 Notify Provider Consults [RC] ASDIRECTED Consult to Physician [CONS] Routine 10/02/17 10:16 Consult to Cardio Clinician [Consult to Diabetic Nurse Specialist] [CONS] Routine Consult to Dietary [Consult to Electronic Assembler Group Leader] [CONS] Routine 10/02/17 13:06 Sodium Chloride 0.9% [Saline Flush] 20 ml FLUSH ONETIME PRN 10/02/17 15:00 Vancomycin 1 gm Vancomycin 500 mg Sodium Chloride 0.9% [Normal Saline] 500 ml IV Q12H 10/02/17 21:00 Insulin Detemir [Levemir] 20 unit SUBCUT BEDTIME 10/02/17 Breakfast [employer] Diet [DIET] 10/03/17 06:00 Pantoprazole [ProTONIX] 40 mg PO ACBREAKFAST 10/03/17 07:00 Insulin Aspart [NovoLOG] See Protocol SUBCUT QIDACANDBED 10/03/17 09:00 Aspirin 81 mg PO DAILY 10/03/17 Breakfast NPO After Midnight [Nothing per Oral After Midnight Diet] [DIET] 10/04/17 02:30 VANCOMYCIN TROUGH [CHEM] Timed - Plan Plan:: Impression: Failed outpatient therapy for cellulitis; diabetic foot ulcer Query osteomyelitis Abscess formation on plantar aspect of right foot HTN Diabetes Mellitus type 2; poor control HA1C, 10.5 Chronic Obesity HLD Plan: MRI re: foot, eval for OM Novolog SS IVF Continue Clindamycin/Vancomycin General Surgery consult BC pending Home meds Diabetic teaching Dietary consult DVT/GI prophylaxis PT/OT consult MRSA screen
[2017-10-02] MEDS ORDERED: Insulin Detemir 100 Units/ML 3 ML Pen SUBCUT SCH (21:00)
[2017-10-03] MEDS: Clindamycin Phosphate 900 MG in Sodium Chloride 0.9% 100 ML IV SCH (04:08)
[2017-10-03] MEDS: Vancomycin 1500 MG in Sodium Chloride 0.9% 500 ML IV SCH ×3 (04:08)
[2017-10-03] MEDS ORDERED: Pantoprazole 40 MG Tab.CR PO SCH (06:00)
[2017-10-03] MEDS: Ketorolac 30 MG/ML SDV IVPUSH SCH (06:04)
[2017-10-03] MEDS ORDERED: Insulin Aspart 100 Units/ML 3 ML Pen SUBCUT SCH (07:00)
[2017-10-03] MEDS ORDERED: Aspirin 81 MG Tab.Chew PO SCH (09:00)
--- NOTE | 2017-10-03 09:10 | PCM.DCSUM1 ---
Discharge Summary - Hospital Course Free Text/Narrative:: 42 year old male with diabetic right foot/abscess was evaluated and treated for possible osetomyelitis. He received Clinda/Vanco and was found to have Group B strep on wound culture as well as blood Cs. The patient was evaluated by gen surg who recommend transfer to [place], there was no orthopedic surgeon available over the weekend. The case was discussed with ortho surgeon, Dr Grigsby, and hospitalist, Dr Martinez who accepted the patient for transfer for 10/03/17. He was subsequently transferred by ambulance to [facility]. Primary Dx Diabetic foot abscess (plantar aspect) Osteomyelitis Diabetes Mellitus type 2 Diet NPO Activity Bedrest Meds IVF Clindamycin Vancvomycin Novolog SS, moderate Transportation Ambulance to [facility] - Discharge Data Discharge Date: 10/03/17 Discharge Disposition: DC/Tfer to Acute Hospital 02 Condition: Good - Discharge Diagnosis/Problem(s) (1) Abscess SNOMED Code(s): 086935562 ICD Code: L02.91 - CUTANEOUS ABSCESS, UNSPECIFIED Status: Acute (2) Diabetes mellitus SNOMED Code(s): 65927563 ICD Code: E11.9 - TYPE 2 DIABETES MELLITUS WITHOUT COMPLICATIONS Status: Acute (3) Obesity (BMI 30.0-34.9) SNOMED Code(s): 555344494 ICD Code: E66.9 - OBESITY, UNSPECIFIED Status: Acute (4) Hypertension SNOMED Code(s): 92063851 ICD Code: I10 - ESSENTIAL (PRIMARY) HYPERTENSION Status: Acute (5) Hyperlipidemia SNOMED Code(s): 49376525 ICD Code: E78.5 - HYPERLIPIDEMIA, UNSPECIFIED Status: Acute (6) Diabetic foot ulcer SNOMED Code(s): 024748075 ICD Code: E11.621 - TYPE 2 DIABETES MELLITUS WITH FOOT ULCER; L97.509 - NON- PRESSURE CHRONIC ULCER OTH PRT UNSP FOOT W UNSP SEVERITY Status: Acute Qualifiers: Diabetic foot ulcer location: midfoot Diabetes mellitus type: type 2 Laterality: left Non-pressure ulcer stage: with other severity Qualified Code(s): E11.621 - Type 2 diabetes mellitus with foot ulcer; L97.428 - Non- pressure chronic ulcer of left heel and midfoot with other specified severity; L97.428 - Non-pressure chronic ulcer of left heel and midfoot with other specified severity - Patient Summary/Data Consults: Consultations 10/02/17 01:02 Consult to Case Management [CONS] Routine 10/02/17 07:00 Consult to Physical Therapy [PT Evaluation and Treatment] [CONS] Routine Consult to Physical Therapy [PT Evaluation and Treatment] [CONS] Routine 10/02/17 10:14 Consult to Physician [CONS] Routine 10/02/17 10:16 Consult to Academic Administrator [Consult to Diabetic Nurse Specialist] [CONS] Routine Consult to Dietary [Consult to Core Blower] [CONS] Routine - Discharge Plan Prescriptions/Med Rec: Acetaminophen [Tylenol] 650 mg PO Q6H PRN #30 tablet PRN Reason: Fever Acetaminophen/HYDROcodone [Athena 325-5 MG] 1 tab PO Q4H PRN #20 tablet PRN Reason: Pain Enoxaparin [Lovenox] 40 mg SUBCUT DAILY #7 syringe hydrALAZINE [Apresoline] 20 mg IVPUSH Q6H PRN #7 sdv PRN Reason: Hypertension HYDROmorphone [Dilaudid] 1 mg IVPUSH Q6H PRN #7 syringe PRN Reason: Pain Insulin Aspart [NovoLOG] See Protocol SUBCUT QIDACANDBED #7 pen Insulin Detemir [Levemir] 20 unit SUBCUT BEDTIME #7 pen Ketorolac [Toradol] 30 mg IVPUSH Q8H #7 vial Pantoprazole [ProTONIX] 40 mg PO ACBREAKFAST #30 tab.cr Vancomycin 1 gm IV Q12H #20 vial Home Medications: Home Meds Aspirin [Children's Aspirin] 81 mg PO DAILY 09/27/17 [History] Insulin Aspart [NovoLOG] See Protocol SQ QID 10/01/17 [History] Insulin Detemir [Levemir Flextouch] 20 unit SQ BEDTIME 10/01/17 [History] Acetaminophen [Tylenol] 650 mg PO Q6H PRN #30 tablet 10/03/17 [Rx] Acetaminophen/HYDROcodone [Athena 325-5 MG] 1 tab PO Q4H PRN #20 tablet 10/03/17 [Rx] Enoxaparin [Lovenox] 40 mg SUBCUT DAILY #7 syringe 10/03/17 [Rx] HYDROmorphone [Dilaudid] 1 mg IVPUSH Q6H PRN #7 syringe 10/03/17 [Rx] Insulin Aspart [NovoLOG] See Protocol SUBCUT QIDACANDBED #7 pen 10/03/17 [Rx] Insulin Detemir [Levemir] 20 unit SUBCUT BEDTIME #7 pen 10/03/17 [Rx] Ketorolac [Toradol] 30 mg IVPUSH Q8H #7 vial 10/03/17 [Rx] Pantoprazole [ProTONIX] 40 mg PO ACBREAKFAST #30 tab.cr 10/03/17 [Rx] Vancomycin 1 gm IV Q12H #20 vial 10/03/17 [Rx] hydrALAZINE [Apresoline] 20 mg IVPUSH Q6H PRN #7 sdv 10/03/17 [Rx] Patient Handouts: Smoking Cessation, Tips for Success, [id number], Diabetes and Foot Care, Diabetes and Sick Day Management, Cellulitis, Adult, [id number] , How to Avoid Diabetes Problems - General Info Date of Service: 10/01/17 Functional Status: Reports: Pain Controlled, Tolerating Diet, Ambulating, Urinating - Review of Systems General: Reports: No Symptoms HEENT: Reports: No Symptoms Pulmonary: Reports: No Symptoms Cardiovascular: Reports: No Symptoms Gastrointestinal: Reports: No Symptoms Genitourinary: Reports: No Symptoms Musculoskeletal: Reports: No Symptoms Skin: Reports: No Symptoms Neurological: Reports: No Symptoms Psychiatric: Reports: No Symptoms - Patient Data Vitals - Most Recent: Last Vital Signs Temp 37.3 C 10/02/17 22:27 Pulse 84 10/03/17 06:11 Resp 18 10/03/17 06:11 BP 140/84 10/03/17 06:11 Pulse Ox 93 L 10/03/17 06:11 Weight - Most Recent: 99.819 kg I&O - Last 24 hours: Intake & Output 10/02/17 10/03/17 10/03/17 22:59 06:59 14:59 Intake Total 1960 800 Output Total 1000 1400 Balance 960 -600 Lab Results - Last 24 hrs: Laboratory Results - last 24 hr 10/02/17 10/02/17 10/02/17 Range/Units 11:59 16:48 21:06 POC Glucose 353 H 189 H 252 H (70-105) mg/dL 10/03/17 Range/Units 06:08 POC Glucose 142 H (70-105) mg/dL Med Orders - Current: Current Medications Acetaminophen (Tylenol) 650 mg PO Q6H PRN PRN Reason: Pain Last Admin: 10/01/17 22:44 Dose: 650 mg Hydrocodone Bitart/Acetaminophen (Athena 325-5 Mg) 1 tab PO Q4H PRN PRN Reason: Pain Last Admin: 10/02/17 22:07 Dose: 1 tab Aspirin (Aspirin) 81 mg PO DAILY [facility] Enoxaparin Sodium (Lovenox) 40 mg SUBCUT DAILY [facility] Last Admin: 10/02/17 09:23 Dose: 40 mg Hydralazine HCl (Apresoline) 20 mg IVPUSH Q6H PRN PRN Reason: Hypertension Last Admin: 10/02/17 16:50 Dose: 20 mg Hydromorphone HCl (Dilaudid) 1 mg IVPUSH Q6H PRN PRN Reason: Pain Clindamycin Phosphate 900 mg/ (Sodium Chloride) 106 mls @ 100 mls/hr IV Q6H [facility] Last Admin: 10/03/17 04:08 Dose: 100 mls/hr Vancomycin HCl 1 gm/Vancomycin HCl 500 mg/ Sodium Chloride 500 mls @ 333 mls/ hr IV Q12H [facility] Last Admin: 10/03/17 04:08 Dose: 333 mls/hr Insulin Aspart (Novolog) 0 unit SUBCUT QIDACANDBED [facility] PRN Reason: Protocol Last Admin: 10/03/17 06:28 Dose: Not Given Insulin Detemir (Levemir) 20 unit SUBCUT BEDTIME [facility] Last Admin: 10/02/17 22:08 Dose: 20 unit Ketorolac Tromethamine (Toradol) 30 mg IVPUSH Q8H [facility] Stop: 10/04/17 07:01 Last Admin: 10/03/17 06:04 Dose: 30 mg Pantoprazole Sodium (Protonix) 40 mg PO ACBREAKFAST [facility] Last Admin: 10/03/17 06:04 Dose: 40 mg Sodium Chloride (Saline Flush) 10 ml FLUSH ASDIRECTED PRN PRN Reason: Keep Vein Open Last Admin: 10/01/17 17:15 Dose: 10 ml Sodium Chloride (Saline Flush) 20 ml FLUSH ONETIME PRN PRN Reason: Keep Vein Open Last Admin: 10/02/17 14:26 Dose: 20 ml Vancomycin HCl (Pharmacy To Dose - Vancomycin) 1 dose .XX ASDIRECTED [facility] Discontinued Medications Gadobenate Dimeglumine (Multihance) 20 ml IVPUSH ONETIME ONE Stop: 10/02/17 13:07 Last Admin: 10/02/17 14:26 Dose: 20 ml Sodium Chloride (Normal Saline) 1,000 mls @ 999 mls/hr IV ASDIRECTED [facility] Last Admin: 10/01/17 17:18 Dose: 999 mls/hr Clindamycin Phosphate 900 mg/ (Sodium Chloride) 106 mls @ 100 mls/hr IV ONETIME ONE Stop: 10/01/17 19:06 Last Admin: 10/01/17 18:45 Dose: 100 mls/hr Vancomycin HCl 1 gm/ Sodium (Chloride) 250 mls @ 250 mls/hr IV ONETIME ONE Stop: 10/01/17 19:02 Last Admin: 10/01/17 18:46 Dose: 250 mls/hr Sodium Chloride (Normal Saline) 1,932 mls @ 999 mls/hr IV ONETIME ONE Stop: 10/01/17 20:27 Last Infusion: 10/01/17 19:49 Dose: 999 mls/hr Sodium Chloride (Normal Saline) 1,000 mls @ 150 mls/hr IV ASDIRECTED [facility] Last Admin: 10/02/17 10:48 Dose: 150 mls/hr Vancomycin HCl 1 gm/Vancomycin HCl 500 mg/ Sodium Chloride 500 mls @ 333 mls/ hr IV Q12H [facility] Last Admin: 10/02/17 20:23 Dose: Not Given Vancomycin HCl 1 gm/ Sodium (Chloride) 250 mls @ 250 mls/hr IV ONETIME ONE Stop: 10/02/17 03:59 Last Admin: 10/02/17 03:02 Dose: 250 mls/hr Vancomycin HCl 1 gm/ Sodium (Chloride) 250 mls @ 250 mls/hr IV ONETIME ONE Stop: 10/02/17 04:59 Last Admin: 10/02/17 20:23 Dose: Not Given Vancomycin HCl 1 gm/ Sodium (Chloride) 250 mls @ 250 mls/hr IV ONETIME ONE Stop: 10/02/17 05:59 Last Admin: 10/02/17 06:05 Dose: 250 mls/hr Lactated Ringer's (Ringers, Lactated) 1,000 mls @ 100 mls/hr IV ASDIRECTED [facility] Insulin Aspart (Novolog) 0 unit SUBCUT BIDMEALS [facility] PRN Reason: Protocol Insulin Aspart (Novolog) 0 unit SUBCUT QIDACANDBED [facility] PRN Reason: Protocol Stop: 10/03/17 04:00 Last Admin: 10/02/17 22:14 Dose: 6 unit Ketorolac Tromethamine (Toradol) 30 mg IVPUSH Q8H PRN PRN Reason: Pain Last Admin: 10/01/17 22:46 Dose: 30 mg - Exam Quality Assessment: Reports: DVT Prophylaxis General: Reports: Alert, Oriented, Cooperative, No Acute Distress HEENT: Reports: Pupils Equal, Pupils Reactive, EOMI Neck: Reports: Supple, Trachea Midline, No JVD Lungs: Reports: Normal Respiratory Effort Cardiovascular: Reports: Regular Rate, Regular Rhythm GI/Abdominal Exam: Normal Bowel Sounds, Soft, Non-Tender, No Organomegaly, No Distention (Male) Exam: Deferred Rectal (Males) Exam: Deferred Back Exam: Reports: Normal Inspection Extremities: Normal Inspection, Leg Pain, Limited Range of Motion, Increased Warmth, Redness Skin: Reports: Warm Wound/Incisions: Reports: Drainage, Erythema Neurological: Reports: No New Focal Deficit, Normal Speech Psy/Mental Status: Reports: Alert, Normal Affect, Normal Mood *Q Meaningful Use (DIS) - VTE *Q VTE Criteria *Q: - Stroke *Q Stroke Criteria *Q: - AMI *Q AMI Criteria *Q:
[2017-10-03] MEDS ORDERED: Sodium Chloride 0.9% 1,000 ML IV SCH (09:45)
[2017-10-03] MEDS: Enoxaparin 40 MG/0.4 ML Syringe SUBCUT SCH (10:00)
[2017-10-03] MEDS: Acetaminophen/HYDROcodone 325-5 MG Tab PO PRN (10:13)
--- NOTE | 2017-10-05 09:11 | CONS ---
CONSULTING PHYSICIAN: Juan Glover MD DATE OF CONSULTATION: 10/02/2017 HISTORY OF PRESENT ILLNESS: This is a 42-year-old male who comes in with pain and infection in his right foot. He states that about the 3rd week around hunting season in July, he noted blisters on the foot from walking in the field hunting. These cleared up in August by putting antibiotic ointment on them. He states that he got new shoes for his walking, and by September, he was having an ulcer. He was seen and given Vibramycin around September 28, but the problem continued, he was seen in the clinic and was admitted to the hospital. The patient states he has diabetes for about 17 years. A1c has been ranging between 8 and 10. He states he has neuropathy in the lower feet described as tingling. No eye or kidney problems he states. Denies any claudication or pain in the feet with walking. PAST MEDICAL HISTORY: Hypertension, type 1 diabetes. SOCIAL HISTORY: History of smoking, no alcohol use. REVIEW OF SYSTEMS: No chest pain, shortness of breath, cough, hoarseness, wheezing, fainting, weakness, numbness, convulsions. FAMILY HISTORY: Diabetes. PHYSICAL EXAMINATION: GENERAL: Reveals an alert, cooperative male, in no acute distress. VITAL SIGNS: Temperature 100, pulse 100, respirations 31, blood pressure 132/86. HEENT: Eyes, sclerae white. Extraocular muscle motion normal. Oral cavity, healthy mucous membrane. NECK: Supple. No nodes. No thyromegaly. Trachea midline. LUNGS: Clear. No rales, rhonchi, fremitus, dullness. CARDIAC: Heart tones with regular rate, but still with sinus tachycardia. ABDOMEN: Soft. EXTREMITIES: Upper extremities unremarkable. Lower extremity show necrosis involving most of the forefoot and hindfoot and the arch. Toes are intact. There is some erythema that goes up around the medial side of his ankle. I do not feel any pulses in that foot. Capillary refill is brisk. Calf is unremarkable. ASSESSMENT: Diabetes with extensive infection of the foot needing debridement and possible amputation. PLAN: Would recommend to maximize treatment by referral to [facility]. MMODAL /[id number]
== END 2017-10-03 10:16 | DRG 603 ==
LOC: JD.ED 15:36 → UNDOADMIN 20:40 → JD.MS 20:40
PROVIDERS: ADMIT Internal Medicine Cardiovascular Disease; ATTEND Internal Medicine Cardiovascular Disease
DX: L03.115 Cellulitis of right lower limb (principal); M86.9 Osteomyelitis, unspecified; E11.621 Type 2 diabetes mellitus with foot ulcer; I10 Essential (primary) hypertension; K21.9 Gastro-esophageal reflux disease without esophagitis; F17.200 Nicotine dependence, unspecified, uncomplicated; E66.9 Obesity, unspecified; E78.5 Hyperlipidemia, unspecified; B95.1 Streptococcus, group B, as the cause of diseases classified elsewhere; E11.69 Type 2 diabetes mellitus with other specified complication; E11.65 Type 2 diabetes mellitus with hyperglycemia; Z79.82 Long term (current) use of aspirin; Z79.4 Long term (current) use of insulin; Z79.899 Other long term (current) drug therapy; Z68.33 Body mass index [BMI] 33.0-33.9, adult
CPT/HCPCS: 36415; 73630-26-RT; 73630-RT; 73720-26-RT; 73720-RT; 80048; 80053; 80202; 82962; 83036; 83605; 83735; 85025; 86140; 87040; 87070; 87077; 87186; 96360; 96361; 96365; 96368; 97161-GP; 99284; 99285-25; A9270-GY; A9577; J0360; J1650; J1815-GY; J1885; J3370; J7030; J7040; J7050

== ENCOUNTER 2020-06-27 00:12 | Emergency (ER) | payer OTHER ==
--- NOTE | 2020-06-27 01:23 | EDM.PDOC ---
ED HPI GENERAL MEDICAL PROBLEM - General Chief Complaint: General Stated Complaint: YANET AMB Time Seen by Provider: 06/27/20 01:23 - History of Present Illness INITIAL COMMENTS - FREE TEXT/NARRATIVE: 44-year-old male brought in by EMS after passing out at home. Patient is a heavy drinker. Apparently he was out of some of his medication today that he can get filled until tomorrow he substituted it with PCP that he smoked. And according to the patient's fianc the patient was sitting in a chair and passed out he was out for 5 to 30 seconds according to the fianc. He started to turn blue and then he woke up. No other reliable history is available. Only the patient did try and vomit. The timing of this could not be clarified as to before the event during the event or after the event. The patient had a coughing spell before the episode. 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 - Related Data Allergies Allergy/AdvReac Type Severity Reaction Status Date / Time No Known Allergies Allergy Verified 06/27/20 00:18 Home Meds: Home Meds Aspirin [Children's Aspirin] 81 mg PO DAILY 09/27/17 [History] Insulin Detemir [Levemir Flextouch] 20 unit SQ BEDTIME 10/01/17 [History] Insulin Aspart [NovoLOG] See Protocol SUBCUT QIDACANDBED #7 pen 10/03/17 [Rx] Omeprazole 20 mg PO DAILY 04/26/18 [History] amLODIPine Besylate [Norvasc] 5 mg PO DAILY #30 tablet 04/26/18 [Rx] Furosemide [Lasix] 20 mg PO DAILY 06/27/20 [History] lisinopriL [Lisinopril] 20 mg PO DAILY 06/27/20 [History] Past Medical History Cardiovascular History: Reports: Hypertension Gastrointestinal History: Reports: GERD Endocrine/Metabolic History: Reports: Diabetes, Type II Dermatologic History: Reports: Other (See Below) Other Dermatologic History: Diabetic ulcers - Infectious Disease History Infectious Disease History: Reports: Chicken Pox - Past Surgical History Dermatological Surgical History: Reports: None Social & Family History - Family History Family Medical History: Noncontributory - Tobacco Use Smoking Status *Q: Current Every Day Smoker Years of Tobacco use: 5 Packs/Tins Daily: 0.5 - Caffeine Use Caffeine Use: Reports: Coffee, Soda Other Caffeine Use: diet - Recreational Drug Use Recreational Drug Use: Yes Drug Use in Last 12 Months: Yes Recreational Drug Type: Reports: Marijuana/Hashish Recreational Drug Use Frequency: Socially ED ROS GENERAL - Review of Systems Review Of Systems: See Below Constitutional: Reports: No Symptoms HEENT: Reports: No Symptoms Respiratory: Reports: Cough Cardiovascular: Reports: No Symptoms Endocrine: Reports: No Symptoms GI/Abdominal: Reports: Vomiting. Denies: Abdominal Pain, Constipation, Diarrhea, Nausea ED EXAM, GENERAL - Physical Exam Exam: See Below Exam Limited By: Intoxication General Appearance: Obese, Other (She is quite sleepy however he awakens and follows directions appropriately) Eye Exam: Bilateral Eye: Normal Inspection, PERRL Ears: Normal External Exam, Normal Canal, Hearing Grossly Normal, Normal TMs Nose: Normal Inspection, Normal Mucosa, No Blood Throat/Mouth: Normal Inspection, Normal Lips, Normal Gums, Normal Oropharynx, Normal Voice, No Airway Compromise. No: Normal Teeth Head: Atraumatic, Normocephalic Neck: Normal Inspection, Supple, Non-Tender, Full Range of Motion Respiratory/Chest: No Respiratory Distress, Lungs Clear, Normal Breath Sounds Cardiovascular: Regular Rate, Rhythm, No Edema, No Murmur GI/Abdominal: Normal Bowel Sounds, Soft, Non-Tender Back Exam: Normal Inspection. No: CVA Tenderness (L), CVA Tenderness (R) Extremities: Normal Inspection, No Pedal Edema Neurological: Other (Intoxicated) Psychiatric: Other (Intoxicated) Course - Vital Signs Last Recorded V/S: Last Vital Signs Temp 36.1 C 06/27/20 00:13 Pulse 85 06/27/20 00:13 Resp 16 06/27/20 00:13 BP 140/81 06/27/20 00:13 Pulse Ox 91 L 06/27/20 00:13 - Orders/Labs/Meds Orders: Active Orders 24 hr Category Date Time Status EKG Documentation Completion [RC] STAT Care 06/27/20 01:36 Active Chest 1V Frontal [CR] Stat Exams 06/27/20 01:57 Taken Head wo Cont [CT] Stat Exams 06/27/20 01:36 Taken Lactated Ringers [Ringers, Lactated] 1,000 ml Med 06/27/20 01:45 Active IV ASDIRECTED Medication Orders Lactated Ringer's (Ringers, Lactated) 1,000 mls @ 150 mls/hr IV ASDIRECTED YUAN Last Admin: 06/27/20 03:27 Dose: 150 mls/hr Documented by: ALEXYS Labs: Laboratory Tests 06/27/20 06/27/20 06/27/20 Range/Units 02:00 02:00 02:00 WBC 9.40 H (4.23-9.07) K/mm3 RBC 4.69 (4.63-6.08) M/mm3 Hgb 12.6 L (13.7-17.5) gm/dl Hct 39.9 L (40.1-51.0) % MCV 85.1 D (79.0-92.2) fl MCH 26.9 (25.7-32.2) pg MCHC 31.6 L (32.2-35.5) g/dl RDW Std Deviation 51.3 H (35.1-43.9) fL Plt Count 340 H (163-337) K/mm3 MPV 10.0 (9.4-12.3) fl Neut % (Auto) 68.0 H (34.0-67.9) % Lymph % (Auto) 22.7 (21.8-53.1) % York % (Auto) 6.1 (5.3-12.2) % Eos % (Auto) 2.6 (0.8-7.0) Baso % (Auto) 0.4 (0.1-1.2) % Neut # (Auto) 6.40 H (1.78-5.38) K/mm3 Lymph # (Auto) 2.13 (1.32-3.57) K/mm3 York # (Auto) 0.57 (0.30-0.82) K/mm3 Eos # (Auto) 0.24 (0.04-0.54) K/mm3 Baso # (Auto) 0.04 (0.01-0.08) K/mm3 PT 10.1 (9.7-11.7) SECONDS INR 0.94 Sodium 135 L (136-145) mEq/L Potassium 4.0 (3.5-5.1) mEq/L Chloride 100 (98-107) mEq/L Carbon Dioxide 24 (21-32) mEq/L Anion Gap 15.0 (5-15) BUN 18 (7-18) mg/dL Creatinine 1.7 H (0.7-1.3) mg/dL Est Cr Clr Drug Dosing 50.76 mL/min Estimated GFR (MDRD) 44 (>60) mL/min BUN/Creatinine Ratio 10.6 L (14-18) Glucose 151 H (74-106) mg/dL Calcium 8.4 L (8.5-10.1) mg/dL Magnesium 1.8 (1.8-2.4) mg/dl Total Bilirubin 0.2 (0.2-1.0) mg/dL AST 19 (15-37) U/L ALT 40 (16-63) U/L Alkaline Phosphatase 144 H (46-116) U/L Total Protein 7.4 (6.4-8.2) g/dl Albumin 2.8 L (3.4-5.0) g/dl Globulin 4.6 gm/dL Albumin/Globulin Ratio 0.6 L (1-2) Urine Color (Yellow) Urine Appearance (Clear) Urine pH (5.0-8.0) Ur Specific [place] (1.005-1.030) Urine Protein (Negative) Urine Glucose (UA) (Negative) Urine Ketones (Negative) Urine Occult Blood (Negative) Urine Nitrite (Negative) Urine Bilirubin (Negative) Urine Urobilinogen (0.2-1.0) Ur Leukocyte Esterase (Negative) U Hyaline Cast (Auto) (0-5) /lpf Urine RBC (0-5) /hpf Urine WBC (0-5) /hpf Ur Epithelial Cells (0-5) /hpf Urine Bacteria (FEW) /hpf Urine Mucus (FEW) /hpf Urine Opiates Screen (YRJMHH=450) Ur Buprenorphine Scrn (CUTOFF=10) Ur Oxycodone Screen (FRO2ZW=619) Urine Methadone Screen (HTQ1AS=329) Ur Propoxyphene Screen (CBZBIP=933) Ur Barbiturates Screen (GUQURP=326) Ur Tricyclics Screen (KZBGVN=902) Ur Phencyclidine Scrn (CUTOFF=25) Ur Amphetamine Screen (QSTLDW=686) U Methamphetamines Scrn (UQFNGO=978) U Benzodiazepines Scrn (RFFBEW=655) U Cocaine Metab Screen (BFKDTR=111) U Marijuana (THC) Screen (CUTOFF=50) Ethyl Alcohol 0.13 (0.00) gm% 06/27/20 06/27/20 Range/Units 04:10 04:10 WBC (4.23-9.07) K/mm3 RBC (4.63-6.08) M/mm3 Hgb (13.7-17.5) gm/dl Hct (40.1-51.0) % MCV (79.0-92.2) fl MCH (25.7-32.2) pg MCHC (32.2-35.5) g/dl RDW Std Deviation (35.1-43.9) fL Plt Count (163-337) K/mm3 MPV (9.4-12.3) fl Neut % (Auto) (34.0-67.9) % Lymph % (Auto) (21.8-53.1) % York % (Auto) (5.3-12.2) % Eos % (Auto) (0.8-7.0) Baso % (Auto) (0.1-1.2) % Neut # (Auto) (1.78-5.38) K/mm3 Lymph # (Auto) (1.32-3.57) K/mm3 York # (Auto) (0.30-0.82) K/mm3 Eos # (Auto) (0.04-0.54) K/mm3 Baso # (Auto) (0.01-0.08) K/mm3 PT (9.7-11.7) SECONDS INR Sodium (136-145) mEq/L Potassium (3.5-5.1) mEq/L Chloride (98-107) mEq/L Carbon Dioxide (21-32) mEq/L Anion Gap (5-15) BUN (7-18) mg/dL Creatinine (0.7-1.3) mg/dL Est Cr Clr Drug Dosing mL/min Estimated GFR (MDRD) (>60) mL/min BUN/Creatinine Ratio (14-18) Glucose (74-106) mg/dL Calcium (8.5-10.1) mg/dL Magnesium (1.8-2.4) mg/dl Total Bilirubin (0.2-1.0) mg/dL AST (15-37) U/L ALT (16-63) U/L Alkaline Phosphatase (46-116) U/L Total Protein (6.4-8.2) g/dl Albumin (3.4-5.0) g/dl Globulin gm/dL Albumin/Globulin Ratio (1-2) Urine Color Yellow (Yellow) Urine Appearance Clear (Clear) Urine pH 6.5 (5.0-8.0) Ur Specific [place] 1.025 (1.005-1.030) Urine Protein 2+ H (Negative) Urine Glucose (UA) 1+ H (Negative) Urine Ketones Negative (Negative) Urine Occult Blood 1+ H (Negative) Urine Nitrite Negative (Negative) Urine Bilirubin Negative (Negative) Urine Urobilinogen 0.2 (0.2-1.0) Ur Leukocyte Esterase Negative (Negative) U Hyaline Cast (Auto) 0-5 (0-5) /lpf Urine RBC 10-20 H (0-5) /hpf Urine WBC 0-5 (0-5) /hpf Ur Epithelial Cells 0-5 (0-5) /hpf Urine Bacteria Rare (FEW) /hpf Urine Mucus Few (FEW) /hpf Urine Opiates Screen Negative (FBOSAV=475) Ur Buprenorphine Scrn Negative (CUTOFF=10) Ur Oxycodone Screen Negative (NJI0DX=496) Urine Methadone Screen Negative (CMC2ZC=069) Ur Propoxyphene Screen Negative (UEVCHR=607) Ur Barbiturates Screen Negative (UEQXBL=953) Ur Tricyclics Screen Negative (ZIOLHA=983) Ur Phencyclidine Scrn Negative (CUTOFF=25) Ur Amphetamine Screen Negative (JJSTPZ=281) U Methamphetamines Scrn Negative (FTSMHC=940) U Benzodiazepines Scrn Negative (PDNIJI=775) U Cocaine Metab Screen Negative (EBRWQO=423) U Marijuana (THC) Screen Negative (CUTOFF=50) Ethyl Alcohol (0.00) gm% Meds: Medications Generic Name Dose Route Start Last Admin Trade Name Freq PRN Reason Stop Dose Admin Lactated Ringer's 1,000 mls @ 150 mls/hr 06/27/20 01:45 06/27/20 03:27 Ringers, Lactated IV 150 mls/hr ASDIRECTED YUAN Administration Discontinued Medications Generic Name Dose Route Start Last Admin Trade Name Freq PRN Reason Stop Dose Admin Folic Acid 1 mg 06/27/20 01:38 Folic Acid IV 06/27/20 01:39 ONETIME ONE Thiamine HCl 100 mg/ Sodium 101 mls @ 202 mls/hr 06/27/20 01:38 06/27/20 02:01 Chloride IV 06/27/20 01:39 202 mls/hr ONETIME ONE Administration Lactated Ringer's 1,000 mls @ 999 mls/hr 06/27/20 01:39 06/27/20 02:01 Ringers, Lactated IV 06/27/20 02:39 999 mls/hr .BOLUS ONE Administration - Re-Assessments/Exams Free Text/Narrative Re-Assessment/Exam: 06/27/20 05:58 Return evaluation is unrevealing his blood alcohol is .13. Urine toxicology is otherwise negative laboratory evaluation is concerning for glucose in his urine and proteinuria most likely due to his poorly controlled diabetes. He has red cells in his urine and his creatinine is elevated at 1.7 I am not sure his blood alcohol explains the lethargy he is exhibited so is quite possible he took something that did not show up in his UDS. Patient would like to go home at this point Departure - Departure Time of Disposition: 06:04 Disposition: Home, Self-Care 01 Clinical Impression: Alcohol intoxication, Illicit drug use - Discharge Information Referrals: PCP,None [Primary Care Provider] - Forms: ED Department Discharge Additional Instructions: Return to the emergency room with any questions problems or worsening symptoms. Follow-up with your regular healthcare provider this next week Consider decreasing or stopping your alcohol usage especially with your diabetes it is having rapidly deteriorating consequences on your health. Sepsis Event Note (ED) - Evaluation Sepsis Screening Result: No Definite Risk - Focused Exam Vital Signs: Vital Signs Temp Pulse Resp BP Pulse Ox 06/27/20 00:13 36.1 C 85 16 140/81 91 L - My Orders Last 24 Hours: My Active Orders 06/27/20 01:36 EKG Documentation Completion [RC] STAT Head wo Cont [CT] Stat 06/27/20 01:45 Lactated Ringers [Ringers, Lactated] 1,000 ml IV ASDIRECTED 06/27/20 01:57 Chest 1V Frontal [CR] Stat - Assessment/Plan Last 24 Hours: My Active Orders 06/27/20 01:36 EKG Documentation Completion [RC] STAT Head wo Cont [CT] Stat 06/27/20 01:45 Lactated Ringers [Ringers, Lactated] 1,000 ml IV ASDIRECTED 06/27/20 01:57 Chest 1V Frontal [CR] Stat
[2020-06-27] MEDS ORDERED: Thiamine 100 MG in Sodium Chloride 0.9% 100 ML IV ONE (01:38)
[2020-06-27] MEDS ORDERED: Folic Acid 50 MG/10 ML MDV IV ONE (01:38)
[2020-06-27] MEDS ORDERED: Lactated Ringers 1,000 ML IV ONE (01:39)
[2020-06-27] MEDS ORDERED: Lactated Ringers 1,000 ML IV SCH (01:45)
--- NOTE | 2020-08-07 09:35 | CR ---
PROCEDURE INFORMATION: Exam: XR Chest, 1 View Exam date and time: 06/27/2020 3:04 AM Age: 44 years old Clinical indication: Other: Possible aspiration TECHNIQUE: Imaging protocol: XR of the chest Views: 1 view. COMPARISON: CT Ang Chest 04/26/2018 7:55 PM FINDINGS: Lungs: The lung volumes are decreased with vascular crowding secondary to elevation of the diaphragms which is likely on the basis of poor inspiratory effort. Minimal atelectasis at the lung bases. No confluent infiltrates are visualized within the pulmonary parenchyma. Pleural space: Unremarkable. No pleural effusion. No pneumothorax. Heart/Mediastinum: Borderline cardiomegaly. Bones/joints: Unremarkable. IMPRESSION: Minimal atelectasis at the lung bases. Thank you for allowing us to participate in the care of your patient. Dictated and Authenticated by: Glenn Stearns MD 08/05/2020 6:19 AM Central Time ([place] & [place]) JACQUELIN
--- NOTE | 2020-08-07 09:35 | CT ---
PROCEDURE INFORMATION: Exam: CT Head Without Contrast Exam date and time: 06/27/2020 2:53 AM Age: 44 years old Clinical indication: Injury or trauma; Fall; Concussion / head injury; Altered mental status/memory loss and syncope and collapse TECHNIQUE: Imaging protocol: Computed tomography of the head without contrast. Radiation optimization: All CT scans at this facility use at least one of these dose optimization techniques: automated exposure control; mA and/or kV adjustment per patient size (includes targeted exams where dose is matched to clinical indication); or iterative reconstruction. COMPARISON: No relevant prior studies available. FINDINGS: Brain: Normal. No hemorrhage. Unremarkable white matter. No mass effect. Cerebral ventricles: No ventriculomegaly. Bones/joints: Unremarkable. No acute fracture. Paranasal sinuses: Visualized sinuses are unremarkable. No fluid levels. Mastoid air cells: Visualized mastoid air cells are well aerated. Soft tissues: There is focal scalp edema/increased attenuation over the left posterior parietal scalp. IMPRESSION: Left posterior parietal scalp focal edema/contusion. Please correlate with site of injury. No underlying calvarial abnormality or acute intracranial hemorrhage. Thank you for allowing us to participate in the care of your patient. Dictated and Authenticated by: Nia Hinkle MD 08/04/2020 10:16 PM Central Time ([place] & [place]) JACQUELIN
== END 2020-06-27 06:20 | disposition home or self-care (01) ==
LOC: JD.ED 00:12
DX: F10.129 Alcohol abuse with intoxication, unspecified (principal); Y90.6 Blood alcohol level of 120-199 mg/100 ml; F19.90 Other psychoactive substance use, unspecified, uncomplicated; I10 Essential (primary) hypertension; E11.9 Type 2 diabetes mellitus without complications; K21.9 Gastro-esophageal reflux disease without esophagitis; F17.210 Nicotine dependence, cigarettes, uncomplicated; Z79.82 Long term (current) use of aspirin; Z79.4 Long term (current) use of insulin; Z79.899 Other long term (current) drug therapy
CPT/HCPCS: 36415; 70450; 71045; 80053; 80306; 80307; 81001; 83735; 85025; 85610; 93005; 96361; 96365; 99285; J3411; J7050; J7120; 93010; 99283

== ENCOUNTER 2020-12-06 02:02 | Inpatient (IN) | payer OTHER ==
[2020-12-06] MEDS ORDERED: Sodium Chloride 0.9% 1,000 ML IV ONE ×3 (02:09→07:02)
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
[2020-12-06] MEDS ORDERED: Ondansetron 4 MG/2 ML SDV IVPUSH ONE (03:40)
[2020-12-06] MEDS ORDERED: FLU VACC QS2020-21(6MOS UP)/PF 60 MCG/0.5 ML SYRINGE IM ONE (05:00)
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
[2020-12-06] MEDS ORDERED: Ketorolac 30 MG/ML SDV IVPUSH STA (07:27)
--- NOTE | 2020-12-06 07:29 | CT ---
CT chest Technique: Multiple axial sections were obtained from above the lung apices inferiorly through the lung bases. Intravenous contrast was utilized. Reconstructed coronal and sagittal images were obtained. Comparison: Prior chest CT study of 04/26/18. Findings: Thoracic aorta shows no aneurysm. Pulsation artifact is noted within the proximal aorta. Mild coronary artery calcification is seen. Mediastinum and hilar regions show no adenopathy. No axillary adenopathy is identified. No pericardial thickening is appreciated. Lung window settings were reviewed which show no acute parenchymal process. Bone window settings were reviewed which show several old healed right upper rib fractures. No acute osseous abnormality is appreciated. Impression: 1. Several old healed right upper rib fractures. 2. Nothing acute is appreciated on CT study of the chest. Diagnostic code #2 I agree with preliminary report from [facility], finalized on 12/06/20, 3:51 AM FLOWER BUNCHER OR PICKER CT abdomen and pelvis Comparison: No prior CT abdomen or pelvis study is available. Previous chest CT study showing the upper abdomen 04/26/18 is available. Technique: Multiple axial sections were obtained obtained from above the dome of the diaphragm inferiorly through the pubic symphysis. Reconstructed coronal and sagittal images were obtained. Delayed images were also obtained. Findings: Liver shows no focal parenchymal abnormality. Spleen appears within normal limits. Right adrenal gland shows a small nodule measuring around 1.4 cm which is stable from prior chest CT. Left adrenal gland is normal. Kidneys show symmetric contrast enhancement without hydronephrosis or mass. Abdominal aorta shows no aneurysm. No retroperitoneal adenopathy or mesenteric abnormalities are seen. No pelvic mass or adenopathy is seen. Delayed images show contrast within the ureters with no significant contrast seen within the bladder. Appendix is seen and is normal in size. Bone window settings were reviewed which show degenerative change primarily at L5-S1 with disc space narrowing, posterior disc bulging and posterior disc calcification and vacuum phenomena. Nothing acute is appreciated. Impression: 1. Stable adrenal nodule on the right side. 2. Other nonacute findings as noted above. Nothing acute is seen. Diagnostic code #2 I agree with preliminary report from [facility], finalized on 12/06/20, 3:58 AM FLOWER BUNCHER OR PICKER
--- NOTE | 2020-12-06 07:42 | CT ---
Head CT Technique: Multiple axial sections through the brain were obtained. Intravenous contrast was not utilized. Reconstructed coronal and sagittal images were obtained. Comparison: Prior head CT study of 06/27/20. Findings: Ventricles along with basal cisterns and sulci over the convexities are within normal limits for the patient's age. No abnormal parenchymal densities are seen. No evidence of intracranial hemorrhage. No midline shift or mass-effect is appreciated. Bone window settings were reviewed which show the visualized mastoid sinuses to appear clear. Mucosal thickening and slight retention cyst is noted within the left maxillary sinus. No acute calvarial finding is seen. Impression: 1. Minimal chronic appearing paranasal sinus findings. 2. Nothing acute is seen on noncontrast head CT exam. Diagnostic code #2 I agree with preliminary report from [facility], finalized on 0 12/06/20, 3:51 AM WET SUIT GLUER
[2020-12-06] MEDS ORDERED: Lactated Ringers 1,000 ML IV ONE (09:02)
--- NOTE | 2020-12-06 09:37 | CR ---
Chest: Portable view of the chest was obtained. Comparison: Prior chest CT study of 12/06/20 Slight increased density within the left lung base is seen which appears as an interval change from earlier CT exam. Left upper and right lung are clear. Heart size and mediastinum are normal. No discrete bony abnormality is appreciated. Impression: 1. Slight increased density within left lung base as an interval change from prior chest CT. This may represent increasing area of atelectasis, aspiration or development of a small area of pneumonia. Please correlate with the patient's symptoms. 2. Nothing acute is otherwise seen on portable chest x-ray. Diagnostic code #3
[2020-12-06] MEDS ORDERED: Albuterol/Ipratropium 3.0-0.5 MG/3 ML Neb Soln NEB ONE (11:37)
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
[2020-12-06] MEDS: Gabapentin 300 MG Cap PO SCH ×2 (16:42→21:09)
[2020-12-06] MEDS: Ketorolac 15 MG/ML SDV IVPUSH SCH (17:38)
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
[2020-12-06] MEDS: metroNIDAZOLE 500 MG Tab PO SCH (21:09)
[2020-12-06] MEDS: Gabapentin 100 MG Cap PO SCH (21:09)
[2020-12-07] MEDS: Ketorolac 15 MG/ML SDV IVPUSH SCH ×2 (00:47→08:03)
[2020-12-07] MEDS ORDERED: Acetaminophen 325 MG Tab PO PRN (05:25)
[2020-12-07] MEDS: Gabapentin 300 MG Cap PO SCH (08:02)
[2020-12-07] MEDS: metroNIDAZOLE 500 MG Tab PO SCH (08:02)
[2020-12-07] MEDS: Gabapentin 100 MG Cap PO SCH (08:02)
[2020-12-07] MEDS ORDERED: Azithromycin 500 MG in Sodium Chloride 0.9% 250 ML IV SCH ×2 (09:30→12:00)
[2020-12-07] MEDS ORDERED: Albuterol/Ipratropium 3.0-0.5 MG/3 ML Neb Soln NEB PRN (09:30)
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
[2020-12-07] MEDS ORDERED: cefTRIAXone 2 GM in Sodium Chloride 0.9% 100 ML IV SCH ×2 (10:30→13:00)
--- NOTE | 2020-12-07 11:54 | CR ---
Chest: 2 views of the chest were obtained. Comparison: Prior chest x-ray of 12/06/20. Increased density is seen within the left lung base. Findings are suspicious for possible pneumonia. Lungs otherwise are clear. Heart size and mediastinum are normal. Bony structures show no acute abnormality. Impression: 1. Increased density within left lung base. Findings most likely represent small area of pneumonia. 2. Nothing acute is otherwise seen from prior chest x-ray. Diagnostic code #3
[2020-12-07] MEDS ORDERED: Sodium Chloride 0.45% 1,000 ML IV SCH (12:15)
[2020-12-07] MEDS ORDERED: Nicotine 14 MG/24 Hr Patch TRDERM SCH (13:30)
== END 2020-12-07 15:24 | disposition home or self-care (01) | DRG 195 ==
LOC: JD.ED 02:02 → JD.MS 13:30
PROVIDERS: ADMIT Internal Medicine Cardiovascular Disease; ATTEND Internal Medicine Cardiovascular Disease
DX: J18.9 Pneumonia, unspecified organism (principal); I95.9 Hypotension, unspecified; Z20.822 Contact with and (suspected) exposure to COVID-19; I10 Essential (primary) hypertension; E11.621 Type 2 diabetes mellitus with foot ulcer; E66.9 Obesity, unspecified; E78.5 Hyperlipidemia, unspecified; K08.9 Disorder of teeth and supporting structures, unspecified; K21.9 Gastro-esophageal reflux disease without esophagitis; F17.210 Nicotine dependence, cigarettes, uncomplicated; E11.42 Type 2 diabetes mellitus with diabetic polyneuropathy; Z86.16 Personal history of COVID-19; Z79.82 Long term (current) use of aspirin; Z79.4 Long term (current) use of insulin; Z79.899 Other long term (current) drug therapy; Z89.412 Acquired absence of left great toe; Z89.411 Acquired absence of right great toe; Z68.38 Body mass index [BMI] 38.0-38.9, adult
CPT/HCPCS: 36415; 36600; 70450; 70450-26; 71045; 71045-26; 71046; 71046-26; 71260; 71260-26; 72125; 72125-26; 74177; 74177-26; 80048; 80053; 80306; 80307; 81001; 82803; 82962; 83605; 83735; 84145; 85007; 85025; 85027; 85610; 85730; 86140; 93005; 93010; 93306; 94640; 94760; 94761; 96374; 96375; 97161-GP; 99221; 99238; 99285; 99285-25; A9270-GY; J0456; J0696; J1815-GY; J1885; J2405; J7030; J7050; J7120; J7620-GY; U0002

== ENCOUNTER 2024-09-07 00:43 | Emergency (ER) | payer OTHER ==
[2024-09-07] MEDS ORDERED: Sodium Chloride 0.9% 10 ML Syringe FLUSH PRN (01:09)
[2024-09-07 01:23] LABS: BASOPHILS PERCENT AUTO 0.2 % (0.0-1.0); EOSINOPHILS ABSOLUTE AUTO 0.1 K/mm3 (0.0-0.4); EOSINOPHILS PERCENT AUTO 0.3 % (0.0-6.0); HEMATOCRIT 34.8 % (42.0-52.0); IMMATURE GRAN ABSOLUTE AUTO 0.14 K/mm3 (0.00-0.05); IMMATURE GRAN PERCENT AUTO 0.8 % (0.0-0.4); LYMPHOCYTES ABSOLUTE AUTO 1.4 K/mm3 (1.0-4.8); LYMPHOCYTES PERCENT AUTO 7.8 % (24.0-44.0); MEAN CORPUSCULAR HGB CONC 34.5 g/dl (32.0-36.0); MEAN CORPUSCULAR VOLUME 92.8 fl (83.0-99.0); MEAN PLATELET VOLUME 10.1 fl (9.4-12.4); MONOCYTES PERCENT AUTO 5.8 % (0.0-8.0); NEUTROPHILS ABSOLUTE AUTO 14.9 K/mm3 (1.8-7.7); NEUTROPHILS PERCENT AUTO 85.1 % (41.0-71.0); PLATELET COUNT,PLT 313 K/mm3 (150-400); RED BLOOD CELL COUNT 3.75 M/mm3 (4.52-5.90); WHITE BLOOD CELL COUNT,WBC 17.46 K/mm3 (3.9-11.3)
[2024-09-07 01:45] LABS: A/G RATIO 0.5 (1-2); ALBUMIN 1.9 g/dl (3.4-5.0); BILIRUBIN TOTAL 0.2 mg/dL (0.2-1.0); BUN/CREATININE RATIO 7.1 (14-18); CALCIUM 7.8 mg/dL (8.5-10.1); CREATININE 2.4 mg/dL (0.7-1.3); EST CRCL DRUG DOSING (CG) 41.15 mL/min; ETHANOL BLOOD MEDICAL 0.22 gm% (0.00); PROTEIN TOTAL,TP 6.1 g/dl (6.4-8.2)
[2024-09-07] MEDS: Sodium Chloride 0.9% 1,000 ML IV ONE (01:48)
[2024-09-07] MEDS ORDERED: Naloxone 0.4 MG/ML SDV IVPUSH PRN (01:59)
[2024-09-07] MEDS: HYDROmorphone 0.5 MG/0.5 ML Syringe IVPUSH ONE (02:05)
[2024-09-07] MEDS: Ondansetron 4 MG/2 ML SDV IVPUSH ONE (02:05)
[2024-09-07] MEDS: Iopamidol 612 MG/ML 100 ML Bottle IVPUSH ONE (02:21)
== END 2024-09-07 03:15 ==
LOC: JD.ED 00:43
DX: S02.91XA Unspecified fracture of skull, initial encounter for closed fracture (principal); S22.42XA Multiple fractures of ribs, left side, initial encounter for closed fracture; S32.029A Unspecified fracture of second lumbar vertebra, initial encounter for closed fracture; S32.039A Unspecified fracture of third lumbar vertebra, initial encounter for closed fracture; I10 Essential (primary) hypertension; K21.9 Gastro-esophageal reflux disease without esophagitis; E11.42 Type 2 diabetes mellitus with diabetic polyneuropathy; E66.9 Obesity, unspecified; Z86.16 Personal history of COVID-19; Z79.4 Long term (current) use of insulin; Z79.82 Long term (current) use of aspirin; Z79.899 Other long term (current) drug therapy; Y04.0XXA Assault by unarmed brawl or fight, initial encounter; Z68.36 Body mass index [BMI] 36.0-36.9, adult
CPT/HCPCS: 36415; 70450; 71260; 72125; 72128; 72131; 74177; 80053; 80307; 83690; 85025; 96361; 96374; 96375; 99285; J1171; J2405; J7030; Q9967